=== PATIENT | female | born 1935 | race Caucasian/White ===

== ENCOUNTER 2016-08-30 08:30 | Inpatient (IN) | payer MEDICARE ==
--- NOTE | 2016-08-26 20:03 | HP ---
HISTORY AND PHYSICAL: DATE OF OFFICE VISIT: 08/26/16 DATE OF SURGERY: 08/30/16 SURGEON: Radha Zepeda MD PROCEDURE: Right total hip arthroplasty. CHIEF COMPLAINT: Right hip pain. HISTORY OF PRESENT ILLNESS: Ms. Montenegro is a 81-year-old female with complaints of right hip pain. She has failed conservative management and has advanced osteoarthritis of the right hip and is molly cted to proceed with a right total hip arthroplasty scheduled for 08/30/16. PAST MEDICAL HISTORY: Hypertension, Crohn's disease, GERD, osteoarthritis, and breast cancer. PAST SURGICAL HISTORY: Mastectomy, hysterectomy, removal of a cyst from the thyroid, and colonoscop y. CURRENT MEDICATIONS: 1. Multivitamin. 2. Lisinopril/hydrochlorothiazide. 3. Nexium. 4. Aspirin. 5. Fluticasone. 6. Cetirizine. 7. Mineral oil. 8. Metamucil. 9. Nystatin. 10. Silver sulfadiazine. ALLERGIES: To MORPHINE, TRIPLE ANTIBIOTIC OINTMENT, and NEOSPORIN. FAMILY HISTORY: Heart disease. SOCIAL HISTORY: She is a 81-year-old female. She lives with her . She does not smoke, use drugs or alcohol. REVIEW OF SYSTEMS: A complete 14-point review of systems was reviewed with the patient. All was ne gative or noncontributory. PHYSICAL EXAM: VITAL SIGNS: She stands 5 feet 3 inches tall, weighs 215 pounds. Her blood pressure is 146/78 and her heart rate is 76. GENERAL: She is well developed, well nourished, in no acute distress. HEENT: Normocephalic, atraumatic. NECK: Supple. No palpable lymph nodes. Trachea is midline. CARDIO: Regular rate and rhythm. Strong S1, S2. No murmurs, gallops, or rubs. No peripheral edema . PULMONARY: The lungs are clear to auscultation bilaterally. No wheezes, rhonchi, or rales. ABDOMEN: Soft, nontender, and nondistended. NEUROLOGIC: She is alert and oriented x3. Cranial nerves II through XII are intact. MUSCULOSKELETAL: Right lower extremity, she has limited range of motion with internal and external rotation of the right hip. Walks with an antalgic-type gait. She has 2+ dorsalis pedis pulses, inta ct sensation. Skin is intact. Her lower extremity muscle group strengths are intact to 5/5. ASSESSMENT AND PLAN: Ms. Montenegro is a 81-year-old female with complaints of right hip pain. She h as failed conservative management and is elected to proceed with a right total hip arthroplasty sche duled for 08/30/[address] Zepeda discussed the risks and benefits of the surgery at tod 's visit and all of her questions were answered. Coumadin, Percocet, and Colace were sent to her pharmacy for postoperative pain control and DVT prophylaxis. I instructed her not to take the Couma din prior to the surgery. She will follow up with Dr. Zepeda in 10 to 14 days after the surgery. JIM TORRES [id number]/[facility] #: [id number]
--- NOTE | 2016-09-30 19:55 | HP ---
HISTORY AND PHYSICAL: DATE OF SURGERY: 10/11/16 DATE OF OFFICE VISIT: 09/30/16 SURGEON: Radha Zepeda MD PROCEDURE: Right total hip arthroplasty CHIEF COMPLAINT: Right hip pain. HISTORY OF PRESENT ILLNESS: Ms. Montenegro is a 81-year-old female with complaints of right hip pain. She has known advanced osteoarthritis of the right hip. She has failed conservative management an d has elected to proceed with a right total hip arthroplasty, which is scheduled for 10/11/16. PAST MEDICAL HISTORY: Hypertension, Crohn's disease, GERD, osteoarthritis, breast cancer. PAST SURGICAL HISTORY: Lumpectomy, hysterectomy, cyst removal from the thyroid, and colonoscopy. CURRENT MEDICATIONS: 1. Multivitamin. 2. Lisinopril/hydrochlorothiazide. 3. Nexium. 4. Aspirin. 5. Fluticasone. 6. Cetirizine. 7. Mineral oil. 8. Metamucil. 9. Nystatin. 10. Silver sulfadiazine. ALLERGIES: To MORPHINE causing vomiting, TRIPLE ANTIBIOTIC OINTMENT, and NEOSPORIN. FAMILY HISTORY: Heart disease. SOCIAL HISTORY: She is a 81-year-old female. She lives with her . She does not smoke, use drugs or alcohol. REVIEW OF SYSTEMS: A complete 14-point review of systems was reviewed with the patient. All was ne gative or noncontributory. PHYSICAL EXAMINATION GENERAL: She is a well-developed, well-nourished, in no acute distress. VITAL SIGNS: She stands 5 feet 3 inches tall, weighs 215 pounds. Her blood pressure is 168/90, her heart rate is 90. HEENT: Normocephalic, atraumatic. NECK: Supple. No palpable lymph nodes. PULMONARY: The lungs are clear to auscultation bilaterally. No wheezes, rhonchi, or rales. CARDIO: Regular rate and rhythm. Strong S1, S2. No murmurs, gallops, or rubs. No peripheral edema . ABDOMEN: Soft, nontender, and nondistended. MUSCULOSKELETAL: Right lower extremity: Skin is intact. She has limited range of motion with both internal and external rotation. She walks with an antalgic type gait. She has 2+ dorsalis pedis p ulse. Intact sensation and her lower extremity muscular strengths are intact at 5/5. NEUROLOGIC: She is alert and oriented x3. Cranial nerves II through XII are intact. ASSESSMENT AND PLAN: Ms. Montenegro is a 81-year-old female with complaints of right hip pain second ronnie to advanced osteoarthritis. She has failed conservative management and has elected to proceed w ith a right total hip arthroplasty, which is scheduled for 10/11/16. Colace, Coumadin, and Percocet were all sent to her pharmacy and she was instructed not to take the Coumadin prior to the surgery. She will follow up with Dr. Zepeda 14 days after the surgery. JIM TORRES [id number]/[facility] #: [id number]
--- NOTE | 2017-08-15 19:23 | HP ---
HISTORY AND PHYSICAL: DATE OF SURGERY: 08/22/17 DATE OF OFFICE VISIT: 08/14/17 SURGEON: Radha Zepeda MD * (DICTATED BY JIM TORRES) PROCEDURE: Right total hip arthroplasty. CHIEF COMPLAINT: Right hip pain. HISTORY OF PRESENT ILLNESS: Ms. Montenegro is an 82-year-old female with complaints of right hip pain secondary to end-stage osteoarthritis. She has failed conservative management and has elected to proceed with a right total hip arthroplasty, which is scheduled for 08/22/[address] Zepeda. PAST MEDICAL HISTORY: 1. Hypertension. 2. Crohn's disease. 3. GERD. 4. Osteoarthritis. 5. Breast cancer. PAST SURGICAL HISTORY: 1. Hysterectomy. 2. Thyroid cyst removal. 3. Lumpectomy. 4. Colonoscopy. CURRENT MEDICATIONS: 1. Daily multivitamin. 2. Lisinopril/hydrochlorothiazide 20/25 mg daily. 3. Aspirin 81 mg daily. 4. Cetirizine 10 mg daily. 5. Mineral oil. 6. Metamucil. 7. Nystatin. 8. Silver sulfadiazine. 9. Omeprazole 20 mg daily. 10. Azelastine. ALLERGIES: MORPHINE, TRIPLE ANTIBIOTIC CREAM, and NEOSPORIN. MORPHINE causing nausea and vomiting only. FAMILY HISTORY: Heart disease. SOCIAL HISTORY: An 82-year-old female. She lives with her . She does not smoke or use drugs. REVIEW OF SYSTEMS: A complete 14-point review of systems was reviewed with the patient, and it was positive for GERD. She denies history of DVT, PE, hepatitis C, HIV, or MRSA. PHYSICAL EXAMINATION GENERAL: She is well developed, well nourished, in no acute distress. VITAL SIGNS: She stands 5 feet 3 inches tall, weighs 215 pounds. Her blood pressure is 167/88, her heart rate is 90. HEENT: Normocephalic, atraumatic. NECK: Supple. No palpable lymph nodes. PULMONARY: Lungs are clear to auscultation bilaterally. CARDIO: Regular rate and rhythm. ABDOMEN: Soft, nontender, nondistended. NEUROLOGICAL: She is alert and oriented x3. Cranial nerves II through XII are intact. MUSCULOSKELETAL: Right lower extremity, the skin is intact. There are no open wounds or abrasions. She walks with an antalgic type gait, favoring her right hip. She has decreased internal and external rotation of her right hip and 2+ dorsalis pedis pulses. Intact sensation in her lower extremities. Muscle group strength is intact at 5/5. ASSESSMENT AND PLAN: Ms. Montenegro is an 82-year-old female with complaints of right hip pain secondary to advanced osteoarthrosis. She has failed conservative management and has elected to proceed with a right total hip arthroplasty, which is scheduled for 08/22/[address] Zepeda discussed the risks and benefits of the surgery at today's visit and all of her questions were answered. Coumadin, Percocet, and Colace were sent to her pharmacy for postoperative pain control and DVT prophylaxis. She will see Dr. Zepeda back in 2 weeks after the surgery. JIM TORRES [id number]/[facility] #: [id number] MTDD
[2017-08-21] MEDS ORDERED: Buffered Lidocaine 0.9% SYRIN* 5 ML/SYR SYRINGE INTRADERM ONE (14:32)
[2017-08-22] MEDS ORDERED: Buffered Lidocaine 0.9% SYRIN* 5 ML/SYR SYRINGE ONE (06:01)
[2017-08-22] MEDS ORDERED: ceFAZolin 2 GM PREMIX (*) 2 GM/50 ML BAG IVPB ONE (06:01)
[2017-08-22] MEDS ORDERED: Midazolam* 1 MG/ML 2 ML VIAL (2 MG) ONE ×2 (07:14→07:37)
[2017-08-22] MEDS ORDERED: Famotidine IV* 10 MG/ML 2 ML (20 mg) ONE (07:35)
[2017-08-22] MEDS ORDERED: Dexamethasone IV* 4 MG/ML 1 ML (4 MG) ONE (07:35)
[2017-08-22] MEDS ORDERED: Ondansetron INJ* 2 MG/ML VIAL ONE (07:35)
[2017-08-22] MEDS ORDERED: Lidocaine 2% PF * 5 ML VIAL ONE (07:35)
[2017-08-22] MEDS ORDERED: Cisatracurium* 2 MG/ML MDV 5 ML ONE (07:35)
[2017-08-22] MEDS ORDERED: Succinylcholine* 20 MG/ML 10 ML VIAL ONE (07:35)
[2017-08-22] MEDS ORDERED: Propofol* 10 MG/ML 20 ML BTL IV PUSH ONE (07:35)
[2017-08-22] MEDS ORDERED: Polyethylene Glycol 3350* 17 GM PACKET PO PRN (07:46)
[2017-08-22] MEDS ORDERED: Bisacodyl SUPP* 10 MG SUPP PR PRN (07:46)
[2017-08-22] MEDS ORDERED: diPHENhydraMINE IV* 50 MG/ML 1 ml VIAL (BENADRYL) IV PRN (07:46)
[2017-08-22] MEDS ORDERED: Acetaminophen TAB* 325 MG PO PRN (07:46)
[2017-08-22] MEDS ORDERED: Magnesium Hydroxide LIQ* 30 ML UDC PO PRN (07:46)
[2017-08-22] MEDS ORDERED: Ondansetron INJ* 2 MG/ML VIAL IV PRN ×2 (07:46→09:02)
[2017-08-22] MEDS ORDERED: HYDROmorphone INJ* 2 MG/ML CARPUJECT SYRINGE IV SLOW PU PRN (07:49)
[2017-08-22] MEDS ORDERED: Nystatin CREAM* 15 GM TUBE TOPICAL PRN (07:50)
[2017-08-22] MEDS ORDERED: KETAMINE HCL* 50 MG/ML 10 ML VIAL ONE (07:51)
[2017-08-22] MEDS ORDERED: fentaNYL* 50 MCG/ML 2 ML VIAL (100 MCG VIAL) ONE (07:51)
[2017-08-22] MEDS ORDERED: Dexmedetomidine* 200 MCG/2 ML 2 ML VIAL ONE (07:52)
[2017-08-22] MEDS ORDERED: Phenylephrine IV* 40 MCG/ML 10 ML SYRINGE ONE (08:39)
[2017-08-22] MEDS ORDERED: Metoclopramide IV* 5 MG/ML 2 ML VIAL ONE (08:41)
[2017-08-22] MEDS ORDERED: EPHEDrine (Pressors)* 50 MG/ML VIAL ONE (08:45)
[2017-08-22] MEDS ORDERED: Hetastarch in NS* 500 ML IV ONE (08:59)
[2017-08-22] MEDS ORDERED: Lisinopril/HCTZ 20/25(NF) TAB PO SCH (09:00)
[2017-08-22] MEDS ORDERED: Nalbuphine* 20 MG/ML 1 ML VIAL IV PRN (09:02)
[2017-08-22] MEDS ORDERED: DiMENhydriNATE IV* 50 MG/ML VIAL IV PUSH PRN (09:02)
[2017-08-22] MEDS ORDERED: fentaNYL* 50 MCG/ML 2 ML VIAL (100 MCG VIAL) IV PRN (09:02)
[2017-08-22] MEDS ORDERED: Bupivacaine 0.5% SDV PF* 30 ML VIAL ONE (09:08)
--- NOTE | 2017-08-22 10:17 | RAD ---
Indication: Right hip replacement. Single view of the right hip taken in the operating room demonstrates right acetabular cup and femoral reamer in place. IMPRESSION: Intraoperative control films for right placement.
[2017-08-22] MEDS ORDERED: Meperidine SYRINGE* 50 MG/ML ONE (10:18)
[2017-08-22] MEDS: Meperidine SYRINGE* 50 MG/ML IV PRN ×4 (10:19→11:28)
[2017-08-22] MEDS ORDERED: oxyCODONE/Acetamin 5/325 MG* TAB ONE (10:54)
[2017-08-22] MEDS: oxyCODONE/Acetamin 5/325 MG* TAB PO PRN ×3 (10:55→23:33)
--- NOTE | 2017-08-22 11:13 | RAD ---
Indication: Postop RIGHT total hip replacement. Comparison: Intraoperative exam of the same date. Technique: Portable AP RIGHT hip, AP pelvis and proximal femurs, and crosstable lateral RIGHT hip views. Report: RIGHT total hip prosthesis in place with normal alignment. Negative for periprosthetic fracture. Surrounding soft tissue edema and subcutaneous emphysema. Pelvic surgical clips. IMPRESSION: Unremarkable immediate postop appearance following RIGHT total hip replacement.
[2017-08-22] MEDS: Fluticasone NASAL SPRAY 50MCG* 16 gm SPRAY BTL BOTH NARES SCH (13:49)
[2017-08-22] MEDS: Omeprazole CAP* 20 MG PO SCH ×2 (13:49→20:12)
[2017-08-22] MEDS: Docusate CAP* 100 MG PO SCH ×2 (13:49→20:12)
[2017-08-22] MEDS ORDERED: Warfarin TAB(*) 6 MG PO ONE (17:00)
[2017-08-22] MEDS: ceFAZolin 1 GM VIAL(*) 1 GM in NS 0.9% 50 ML* 50 ML IVPB SCH (17:24)
--- NOTE | 2017-08-22 19:57 | CONS ---
CC: Tasha Gabriel NP; Dr. Zepeda * CONSULTATION REPORT: DATE OF CONSULT: 08/22/17 PRIMARY CARE PROVIDER: Tasha Gabriel NP REQUESTING PHYSICIAN IN CONSULT: Dr. Zepeda. MY ATTENDING PHYSICIAN WHILE IN THE HOSPITAL: Dr. Jase Mckeon (report being dictated by Carlos Marie NP). REASON FOR MEDICAL CONSULT: Evaluation and medical management of comorbid medical conditions. HISTORY OF PRESENT ILLNESS: Ms. Montenegro is an 82-year-old female patient, who has been dealing with significant right hip pain for some time now. She had failed conservative therapy. She sought care with Dr. Zepeda, actually this was the third time, the case has been canceled twice for once due to the patient's illness, second due to concern for bleeding, and now the case was done today. She has been failing conservative therapy. She elected for the total hip replacement. She does carry a history of hypertension, breast cancer, history of colitis and Crohn's, breast cancer, arthritis, and GERD, and we were asked to evaluate in consult. She does have a history after hysterectomy in the 80s of requiring several units of blood according to notes from her oncologist. The patient recalls over the course of several hospitalizations related to that hysterectomy that she needed about 30 units of blood. There was a concern for von Willebrand syndrome, but repeat testing was done and this diagnosis was not confirmed, so she has got no von Willebrand's, but she does have a history of bleeding postoperatively in the past with the hysterectomy in the 80s. The patient was evaluated in the PACU today. She says she is feeling well. She denies any chest pain. Denies having any shortness of breath. She denies having any abdominal discomfort. She says that she does not feel hungry. She said that she does not feel lightheaded or dizzy. She says she is feeling quite well, with the exception she does have some pain in the right hip area. But because of her medical complexity, we were asked to evaluate in consult. PAST MEDICAL HISTORY: Significant: 1. Hypertension. 2. Coronary artery disease. 3. GERD. 4. Arthritis. 5. Breast cancer. PAST SURGICAL HISTORY: She has had: 1. Hysterectomy, again complicated course postoperatively with bleeding. 2. Thyroid cyst removal. 3. Lumpectomy. MEDICATIONS: Her home medications according to the preop list include: 1. Allergy shot 1 injection as prescribed. 2. Aspirin 81 mg daily. 3. Vagisil 1 application topically daily as needed. 4. Elidel cream 1 application topically b.i.d. as needed. 5. CeraVe 1 application topically daily. 6. Flonase 2 sprays both nares daily. 7. Lisinopril/hydrochlorothiazide 1 tablet daily. 8. Multivitamin 1 tablet daily. 9. Mineral oil 1 tablet p.o. at bedtime. 10. Nystatin cream 1 application topically b.i.d. as needed. 11. Omeprazole 20 mg p.o. b.i.d. ALLERGIES TO MEDICATIONS: Include MORPHINE TAPE, NEOSPORIN, ALLOYS, and METAL. FAMILY HISTORY: Mother had a history of asthma. Father had an CT at the age of 56. SOCIAL HISTORY: She does not smoke. Does not drink. Surrogate decision maker is her and her son. REVIEW OF SYSTEMS: There is no documented fever. She denied having any significant weight change. There was no double vision. She denies having any ear discharge. There is no rhinorrhea. No sore throat. No thyroid enlargement. Denied having any chest pain. There is no orthopnea. There is no nocturnal dyspnea. There was no abdominal pain. No nausea, no vomiting. No dysuria, no frequency. No seizure, no loss of consciousness. No pruritus, no skin ulceration. Review of 14 systems completed, all others negative. PHYSICAL EXAM: Reveals vital signs blood pressure 111/67, pulse 93, respirations 18, O2 sat 96%, temperature 97.2. General: At this time, Ms. Montenegro is an 82- year-old female patient, she is sitting in the PACU bed. She does not appear to be in any acute distress. HEENT: Head atraumatic. Eyes : EOMs intact. Sclerae anicteric, not pale. Throat: Oral mucosa appears to be most. No oropharyngeal erythema. Neck: Supple. Heart: Sounds S1, S2. Regular rate and rhythm. No murmurs, rubs, or gallops. Lungs: Clear to auscultation bilaterally. No wheezes, rales, or rhonchi. Abdomen: Soft, flat , nontender. Bowel sounds are hypoactive, but present. Extremities: Distal CSM checks are intact to the lower extremities. Lower extremities are immobilized due to hip abduction pillow, but she has dorsi and plantar flexion in both extremities and good sensation. She is moving the upper extremities with 5/5 strength. Neurologically, she is awake, alert, and oriented x3. No gross focal deficits. Skin is intact with the exception she has an incision to the right hip, which is covered with dressing. It is clean, dry, and intact. DIAGNOSTIC STUDIES/LAB DATA: Preop WBC 7.0, RBC 4.86, hemoglobin 13.1, hematocrit 40, platelet count 253. The INR was 1.10. The sodium was 133, potassium 4.3, chloride 96, bicarb 29, BUN 22, creatinine 1.02, glucose is 89. Urine preop showed 1+ leukocyte esterase, present squamous epithelial cells. The culture was negative. She did have a preop chest x-ray which revealed no active cardiopulmonary disease. She had an EKG as well preop which showed normal sinus rhythm at rate of 65. No ST elevations or T-wave inversions were noted. Old medical records were reviewed. ASSESSMENT AND PLAN: Ms. Montenegro is an 82-year-old female patient coming in to our orthopedic services today for an elective right total hip. We were asked to evaluate in consult due to her medical complexity. Recommendations at this point are: 1. Status post right total hip replacement. I will defer the management to Dr. Zepeda and her team. We will be watching closely her H and H, because of her history of bleeding and transfuse as needed and we will continue to follow this closely. 2. Hypotension. In the setting of her having recent anesthetic and her blood loss from the surgery, I am going to hold her blood pressure meds. Blood pressure here was again in the one teens. We will restart when she is able to tolerate. 3. History of colitis and Crohn's. Will follow with primary. Appears to be stable at this point. 3. Gastroesophageal reflux disease. Continue PPI therapy. 4. Arthritis. Continue following with Dr. Zepeda and to follow up with Tasha Gabriel NP. 5. Breast cancer. Continue following with her oncologist. Stable. 6. DVT prophylaxis. Defer to the primary team. 7. Code status. Full code. 8. Fluids, electrolytes, and nutrition. I would recommend a regular diet. TIME SPENT: On the consult 60 minutes, greater than half the time spent face-to - face with the patient obtaining my history and physical, the other half time spent going over plan of care with the patient and implementing plan of care. I did discuss the plan of care with my attending Dr. Mckeon; he is in agreement. CARLOS MARIE NP [id number]/[facility] #: [id number] EDWINA
[2017-08-22] MEDS: oxyCODONE TAB* 5 MG TAB PO PRN (21:28)
[2017-08-23] MEDS: ceFAZolin 1 GM VIAL(*) 1 GM in NS 0.9% 50 ML* 50 ML IVPB SCH ×2 (00:14→07:38)
[2017-08-23] MEDS: oxyCODONE/Acetamin 5/325 MG* TAB PO PRN ×3 (05:47→19:24)
[2017-08-23 06:20] LABS: Hematocrit 21 % (35-47); Hemoglobin 7.2 g/dl (12.0-16.0); Mean Platelet Volume 8 um3 (7.4-10.4)
--- NOTE | 2017-08-23 06:24 | OP ---
OPERATIVE REPORT: DATE OF OPERATION: 08/22/17 DATE OF : 39 SURGEON: Radha Zepeda MD DICE SPOTTER: JIM Bob Ms. Jimenes did help throughout the procedure with preparation of leg, wound retraction, manipulation of the hip, and wound closure. PRE-OP DIAGNOSIS: Severe end-stage degenerative osteoarthritis of the right hip joint. POST-OP DIAGNOSIS: Severe end-stage degenerative osteoarthritis of the right hip joint. OPERATIVE PROCEDURE: Right total hip arthroplasty with acetabular subchondral cyst bone autografting. INDICATIONS: Ms. Montenegro is an 82-year-old female with years of increasingly severe right hip pain. She failed conservative treatment with anti- inflammatories, activity modification, pain pills, ambulatory assistive devices , and physical therapy. Radiographs showed [id number] arthritis. She elected to undergo right hip arthroplasty due to continued pain and decreased quality of life. Informed consent was obtained from the patient. She understood the risks of surgery included, but were not limited to, bleeding, infection, damage to nearby structures, continued pain, need for further surgery , intraoperative fracture, nerve palsy, hardware failure or loosening, dislocation, leg length discrepancy, stroke, heart attack, blood clot, and . She wished to proceed. HARDWARE USED: This is uncemented [place] total hip hardware. For the cup, a Tritanium cluster hole shell 52D, a single 20-mm cancellous bone screw. For the insert, a Trident X3 0-degree polyethylene insert 36D. For the stem, an Accolade TMZF size 3 with a 132-degree neck. For the head, a Biolox delta ceramic V40 femoral head 36, -2.5. ESTIMATED BLOOD LOSS: 600 cc. COMPLICATIONS: None. SPECIMENS: Femoral head and acetabular reaming sent to Pathology. INTRAOPERATIVE FINDINGS: Intraoperatively, the patient was noted to have severe end-stage arthritis with complete loss of cartilage in the femoral head and acetabulum. Acetabulum had thin wall anterior, superiorly, and posteriorly. DESCRIPTION OF PROCEDURE: Ms. Montenegro was identified in the preanesthesia unit. Her right lower extremity was marked as the correct operative side. Informed consent was signed and placed in the chart. The patient was taken to the operating room and placed under spinal anesthesia. A Birch catheter was placed. She was placed in the left lateral decubitus position on the pegboard and all bony prominences were well padded. Right lower extremity was prepped and draped in the usual sterile fashion. Preop time-out was made to correctly identify the patient's side and site. Appropriate perioperative antibiotics were given within 1 hour of incision. A 12-cm posterior hip incision was made with a 10 blade and carried down to the lateral fascial layer. Lateral fascial layer was then incised in line with the skin incision and then Charnley retractor was placed. There was at least 8 cm of subcutaneous fat. The piriformis and conjoint tendons were identified and elevated off the posterolateral femur using electrocautery. These were tagged with two #5 Ethibond's. Next, electrocautery was used to make a standard posterolateral capsular flap and this was also tagged with #5 Ethibond's. The hip was carefully dislocated. Lesser troch to center of the femoral head measured 52 mm. Oscillating saw was used to make the appropriate femoral neck cut. Femoral head had bone graft collected and was set aside. The femur was carefully retracted anteriorly. After appropriate placement of retractor, the acetabulum was easily visualized. A long-handled knife was used to sharply remove any remaining labrum from the acetabular rim. It was noted that there was complete loss of cartilage. The acetabulum bone was extremely thin in anterior, superior, and posterior directions. The acetabulum was sequentially reamed up to a size 51. Bleeding subchondral bone bed was obtained. A 51 trial had good fit and stability. In the weightbearing dome, anteriorly and superiorly, there was a subchondral cyst which was cleared of cystic debris using a curette. Femoral head autograft was used to fill the cystic area. Final implant chosen was a 52D Tritanium cluster hole shell. This was impacted into the acetabulum without difficulty. A good stable fit was obtained as well as appropriate anteversion and abduction angle. A single 20-mm cancellous bone screw was placed in the superoposterior quadrant for extra stability. Liner chosen was a Trident X3 0-degree 36D polyethylene liner. This was impacted into the acetabulum without difficulty. Stability of the liner was checked and rechecked and noted to be stable. Attention was then turned to preparation of the femoral canal. A canal finder was used to enter the proximal femur. The canal was sequentially broached up to a size 3. Size 3 broach had good fit and appropriate anteversion. A 132 neck trial was chosen as well as 36, +0 femoral head trial. Lesser troch to center of the femoral head measured 54 mm. The hip was reduced and taken through a range of motion. The hip was stable in all positions. There was appropriate soft tissue tension and leg lengths. The hip was carefully dislocated. All trials were carefully removed. Final implant chosen was an Accolade TMZF, size 3 with a 132-degree neck. This final implant did sit up about 2 mm. Therefore, a Biolox delta ceramic V40 femoral head 36, -2.5 was chosen as the final femoral head. Lesser troch to center of the femoral head measured 53 mm. The head was impacted on to the femoral neck without difficulty. The hip was reduced and taken through range of motion. The hip was stable in all positions. There was good soft tissue tension and appropriate leg lengths. The hip was copiously irrigated with sterile saline. Previously tagged capsule and tendons were reapproximated to the posterolateral femur through 2 trochanteric drill holes. The lateral fascial layer was closed using interrupted #1 Vicryl's. The rest of the incision was closed in a layered fashion using 0 and 2-0 Vicryl's. Skin was closed using running 3-0 Monocryl and Dermabond. Sterile Adaptic, 4x4's, and paper tape were used to cover the incision. The patient's anesthesia was reversed without difficulty. She was taken to the PACU in stable condition. Intended weightbearing will be weightbearing as tolerated. Intended DVT prophylaxis will be Coumadin with Lovenox bridge. [id number]/[facility] #: [id number] EDWINA
[2017-08-23 06:30] LABS: BUN/Creatinine Ratio 21.9 (8-20); Calcium 7.9 mg/dL (8.6-10.3); EGFR African American 71.9 (>60); EGFR Non-African American 55.9 (>60); Potassium 4.2 mmol/L (3.5-5.0)
[2017-08-23] MEDS: oxyCODONE TAB* 5 MG TAB PO PRN (07:38)
[2017-08-23] MEDS: Omeprazole CAP* 20 MG PO SCH ×2 (07:46→22:10)
[2017-08-23] MEDS: Fluticasone NASAL SPRAY 50MCG* 16 gm SPRAY BTL BOTH NARES SCH (07:46)
[2017-08-23] MEDS: Docusate CAP* 100 MG PO SCH ×2 (07:46→22:10)
[2017-08-23] MEDS ORDERED: Enoxaparin(*) 30 MG/0.3 ML SYR SUBCUT SCH (08:00)
--- NOTE | 2017-08-23 08:32 | PN ---
Progress Note - Progress Note Date of Service: 08/23/17 SOAP: Subjective: [] Patient seen OOB in chair. She has 1-2/10 pain localized to operative site. She confirms mild nausea and dizziness with standing which resolved with sitting down. She is currently receiving PRBC. No chest pain or shortness of breath. Objective: [] Vital Signs Temp 98.5 F 08/23/17 07:28 Pulse 76 08/23/17 07:28 Resp 18 08/23/17 07:54 BP 104/49 08/23/17 07:28 Pulse Ox 95 08/23/17 07:28 Intake & Output 08/22/17 08/23/17 08/23/17 18:59 06:59 18:59 Intake Total 3705 2420 Output Total 850 650 Balance 2855 1770 Intake: IV Fluids 2850 980 LR 2300 980 NS 50ML, Cefazolin 2G 50 hextend 500 Oral 855 1440 Output: Birch 250 650 Estimated Blood Loss 600 Laboratory Last Values Hgb 7.2 g/dl (12.0-16.0) L 08/23/17 05:36 Hct 21 % (35-47) L 08/23/17 05:36 Plt Count 182 10^3/ul (150-450) 08/23/17 05:36 MPV 8 um3 (7.4-10.4) 08/23/17 05:36 INR (Anticoag Therapy) 1.46 (0.89-1.11) H 08/23/17 05:36 Sodium 132 mmol/L (133-145) L 08/23/17 05:36 Potassium 4.2 mmol/L (3.5-5.0) 08/23/17 05:36 Chloride 100 mmol/L (101-111) L 08/23/17 05:36 Carbon Dioxide 28 mmol/L (22-32) 08/23/17 05:36 Anion Gap 4 mmol/L (2-11) 08/23/17 05:36 BUN 21 mg/dL (6-24) 08/23/17 05:36 Creatinine 0.96 mg/dL (0.51-0.95) H 08/23/17 05:36 Est GFR ( Amer) 71.9 (>60) 08/23/17 05:36 Est GFR (Non-Af Amer) 55.9 (>60) 08/23/17 05:36 BUN/Creatinine Ratio 21.9 (8-20) H 08/23/17 05:36 Glucose 116 mg/dL (70-100) H 08/23/17 05:36 Calcium 7.9 mg/dL (8.6-10.3) L 08/23/17 05:36 Blood Type O Positive 08/23/17 05:29 Antibody Screen Negative 08/23/17 05:29 Crossmatch See Detail 08/23/17 05:29 General: Well appearing, no acute distress. Calm and cooperative RLE: BL LE: Calves supple and nontender without erythema, edema, palpable cords. negative lorrie's sign. Sensation intact to light touch distally. DF/PF intact. DP/PT pulses 2+ Assessment: []POD 1 S/P Right total hip arthroplasty 08/22, Dr. Zepeda Plan: []WBAT PT/OT Hold lovenox due to low H&H. Coumadin 6 mg today Patient seen by this morning, condition and care plan were discussed.
[2017-08-23] MEDS: Ondansetron TAB* 4 MG PO PRN ×2 (09:45→14:35)
--- NOTE | 2017-08-23 14:11 | PN ---
Subjective Date of Service: 08/23/17 Interval History: Patient seen and examined at bedside. Patient feels fatigued and reports pain is controlled. Hb low this morning and is currently receiving her second unit of blood. Making progress with PT. Asking for mineral oil and bedtime. Family History: Unchanged from Admission Social History: Unchanged from Admission Past Medical History: Unchanged from Admission Objective Active Medications: Acetaminophen (Tylenol Tab*) 650 mg PO Q4H PRN Bisacodyl (Dulcolax Supp*) 10 mg IN DAILY PRN Diphenhydramine HCl (Benadryl Iv*) 12.5 mg IV Q6H PRN Docusate Sodium (Colace Cap*) 100 mg PO BID [facility] Fluticasone Propionate (Flonase Nasal [place] 50mcg*) 2 spray BOTH NARES DAILY [facility] Hydromorphone HCl (Dilaudid Inj*) 2 mg IV SLOW PU Q4H PRN Lactated Ringer's (Lactated Ringers 1000 Ml Bag*) 1,000 mls @ 100 mls/hr IV PER RATE CHRISTIANO Lactulose (Lactulose*) 30 ml PO Q6H PRN Magnesium Hydroxide (Milk Of Magnesia Liq*) 30 ml PO Q6H PRN Mineral Oil (Mineral Oil*) 30 ml PO BEDTIME [facility]ST[facility] Nystatin (Nystatin Cream*) 1 applic TOPICAL BID PRN Omeprazole (Prilosec Cap*) 20 mg PO BID [facility] Ondansetron HCl (Zofran Inj*) 4 mg IV Q6H PRN Ondansetron HCl (Zofran Tab*) 4 mg PO Q6H PRN Oxycodone HCl (Roxycodone Tab*) 10 mg PO Q4H PRN Oxycodone/Acetaminophen (Percocet 5/325 Tab*) 1 tab PO Q4H PRN Oxycodone/Acetaminophen (Percocet 5/325 Tab*) 2 tab PO Q4H PRN Pharmacy Profile Note (Coumadin Daily Reminder*) 1 note FOLLOW UP 1700 [facility] Polyethylene Glycol/Electrolytes (Miralax*) 17 gm PO DAILY PRN Warfarin Sodium (Coumadin Tab(*)) 6 mg PO ONCE@1700 [facility] Vital Signs Temp Pulse Resp BP Pulse Ox 98.0 F 89 16 131/54 97 08/23/17 13:07 08/23/17 13:07 08/23/17 13:07 08/23/17 13:07 08/23/17 13:07 Oxygen Devices in Use Now: None Appearance: sitting up in bed, NAD Eyes: No Scleral Icterus, PERRLA Ears/Nose/Mouth/Throat: NL Teeth, Lips, Gums Neck: NL Appearance and Movements; NL JVP Respiratory: Symmetrical Chest Expansion and Respiratory Effort, Clear to Auscultation Cardiovascular: NL Sounds; No Murmurs; No JVD, RRR, No Edema Abdominal: NL Sounds; No Tenderness; No Distention Extremities: No Edema Skin: No Rash or Ulcers, - - R hip incision C/D/I Neurological: Alert and Oriented x 3, NL Muscle Strength and Tone Lines/Tubes/Other Access: Clean, Dry and Intact Peripheral IV Nutrition: Taking PO's Result Diagrams: 08/23/17 05:36 08/23/17 05:36 Assess/Plan/Problems-Billing Patinent is an 82 y/o F w/ hx of crohns, HTN, GERD, CAD w/ hx of postoperative bleeding who underwent a total hip replacement with Dr. Zepeda on 08/23. Hospitalist were asked to assist with co-management. - Patient Problems (1) Status post right hip replacement Comment: Managment per Ortho. Pain control. Recheck H/H in AM. PT/OT (2) Acute blood loss as cause of postoperative anemia Comment: Hb 7.2 today. Receiving 2 units of PRBC. Recheck in AM. (3) GERD (gastroesophageal reflux disease) Comment: Continue Prilosec 20mg BID (4) HTN (hypertension) Comment: Hold Zestoretic for now. Restart when SBP> 140. (5) DVT prophylaxis Comment: Warfarin per Ortho (6) Full code status Status and Disposition: Inpatient for total hip replacement. Dispo per Ortho.
[2017-08-23] MEDS ORDERED: Scopolamine 1.5 mg* PATCH ONE (14:56)
[2017-08-23] MEDS ORDERED: Scopolamine 1.5 mg* PATCH TRANSDERM SCH (15:00)
[2017-08-23] MEDS ORDERED: Warfarin TAB(*) 6 MG PO SCH (17:00)
[2017-08-23] MEDS ORDERED: Mineral Oil, LAXITIVE* 30 ML UDC PO SCH (21:00)
[2017-08-24 05:44] LABS: Hematocrit 26 % (35-47)
[2017-08-24] MEDS: oxyCODONE/Acetamin 5/325 MG* TAB PO PRN ×2 (07:31→11:29)
--- NOTE | 2017-08-24 07:46 | PN ---
Progress Note - Progress Note Date of Service: 08/24/17 SOAP: Subjective: Pt. is alert, reports mod pain R hip. Objective: RLE - dressing changed, inc c/d/i. distally nvi. thigh soft. Vital Signs: Temp Pulse Resp BP Pulse Ox 99.4 F 95 20 123/54 95 08/24/17 03:30 08/24/17 03:30 08/24/17 07:31 08/24/17 03:30 08/24/17 03:30 Laboratory Results - last 24 hr 08/23/17 08/24/17 08/24/17 05:29 05:06 05:33 Hgb 9.0 L Hct 26 L INR (Anticoag Therapy) 3.21 H Blood Type O Positive Antibody Screen Negative Crossmatch See Detail Assessment: 82 yo F pod 2 s/p RTHA Plan: d/c lovenox hold coumadin tonight hct improved pt. stable for tx to pmru today
[2017-08-24] MEDS: Omeprazole CAP* 20 MG PO SCH (09:18)
[2017-08-24] MEDS: Fluticasone NASAL SPRAY 50MCG* 16 gm SPRAY BTL BOTH NARES SCH (09:19)
[2017-08-24] MEDS: Docusate CAP* 100 MG PO SCH (09:19)
[2017-08-24 09:32] VITALS: BP 126/58
--- NOTE | 2017-08-25 03:56 | DS ---
DISCHARGE SUMMARY: DATE OF ADMISSION: 08/22/17 DATE OF DISCHARGE: 08/24/17 DATE OF SERVICE: 08/24/17 DATE OF OPERATION: 08/22/17 PROVIDER: Dr. Radha Zepeda * (DICTATED BY JIM BORDEN) BRICK CARRIER: JIM Bob PREOPERATIVE DIAGNOSES: Severe end-stage degenerative osteoarthritis of the right hip joint. OPERATIVE PROCEDURE: Right total hip arthroplasty with acetabular subchondral cyst bone grafting. HISTORY OF PRESENT ILLNESS: Ms. Montenegro is an 82-year-old female with years of increasingly severe right hip pain. She has failed conservative therapy with anti- inflammatories, activity modification, pain pills, ambulatory assistive devices, and physical therapy. Radiographs show [id number] arthritis and she will undergo a right hip arthroplasty on 08/22/17. HOSPITAL COURSE: Chantal Montenegro was admitted to [facility] on 08/22/17 and underwent a right total hip arthroplasty without complication. The patient recovered briefly in the PACU and was then transferred to the short- stay surgical unit in stable condition. On postop day 1, the patient's H and H was 7.2/21, her INR was 1.46. One unit of packed red blood cells was transfused. On exam, she was well-appearing and in no acute distress. Calves were supple and nontender without erythema, edema, or palpable cords. Negative Homans sign. Sensation intact to light touch distally. Dorsiflexion and plantarflexion intact. Dorsalis pedis and posterior tibial pulses were 2+. Right lower extremity dressing was clean, dry, and intact. On postop day 1, she also received irradiated leukocyte reduced RBCs, so in total, she received 2 units of blood on postop day 1. On postop day 2, her H and H was 9.0/26. Her INR was 3.21 after having received a dose of 6 mg of warfarin the night previous. On exam, on postop day #2, her operative dressing was changed. Her incision was clean, dry, and intact. She was neurovascularly intact. Her thigh was soft. Lovenox was discontinued and Coumadin was held. Vital signs on the day of discharge, temperature 99.2, pulse 95, respiratory rate 16, oxygen saturation 90, and blood pressure 126/58. Throughout the hospital course , the patient vital signs remained stable and she remained afebrile. DISCHARGE CONDITION: Stable. DISCHARGE MEDICATIONS: 1. Nystatin cream 1 application topically b.i.d. p.r.n. 2. Alvedil cream 1 application topically b.i.d. p.r.n. 3. Aspirin 81 mg p.o. at bedtime. 4. Lisinopril hydrochlorothiazide 20/25 one tab p.o. q.a.m. 5. Multivitamin 1 tab p.o. q.a.m. 6. Mineral oil 1 oil p.o. at bedtime. 7. Emollient 1 topical application daily. 8. Allergy shots 1 injection per instruction from stove cleaner. 9. Fluticasone nasal spray 50 mcg 2 sprays both nares daily. 10. Omeprazole 20 mg p.o. b.i.d. 11. Benzocaine resorcinol, vaginal 20 per 3% cream 1 application topically daily p.r.n. 12. Acetaminophen 325 mg tablets, she can take 650 mg q.4 hours p.r.n., max dose 4000 mg per day of all sources. 13. Docusate 100 mg p.o. b.i.d. 14. Percocet 5/325 one to two tablets q.4 to 6 hours p.r.n., max daily dose of 10. 15. Scopolamine 1.5 mg patch. Hold warfarin on tonight and RU will take over dosing per INR thereafter. DISCHARGE INSTRUCTIONS: The patient is weightbearing as tolerated. Wound care ; it is okay to shower but no bathing, submerging, or swimming. Showering can begin on the 3rd postoperative day. DIET: Regular diet as tolerated. Continue stool softeners. Call office if no bowel motion in 48 hours. Continue hip precautions. Do not cross legs or bend greater than 90 degrees. Continue physical therapy and occupational therapy exercises as shown. The patient is discharged to [facility] where INRs will be drawn on Mondays and . Wound checks will be conducted. The patient will be participating in physical therapy and occupational therapy. Pain control at this point is prescribed as Percocet 5/325 one to two tabs by mouth every 4 to 6 hours as needed for pain, not to exceed 10 tabs daily. The patient will follow up with Dr. Zepeda in the office in 10 to 14 days. JT [place], [place] [id number]/[facility] #: [id number] [facility]
== END 2017-08-24 11:41 | DRG 470 ==
LOC: AA 08-22 05:52 → SSU 08-22 12:07
PROVIDERS: ADMIT Orthopaedic Surgery Adult Reconstructive Orthopaedic Surgery; ATTEND Orthopaedic Surgery Adult Reconstructive Orthopaedic Surgery
PROC: 0SR904A Replacement of Right Hip Joint with Ceramic on Polyethylene Synthetic Substitute, Uncemented, Open Approach (ICD-10-PCS; 2017-08-22)
PROC: 0QU407Z Supplement Right Acetabulum with Autologous Tissue Substitute, Open Approach (ICD-10-PCS; 2017-08-22)
PROC: 30233N1 Transfusion of Nonautologous Red Blood Cells into Peripheral Vein, Percutaneous Approach (ICD-10-PCS; principal; 2017-08-23)
DX: M16.11 Unilateral primary osteoarthritis, right hip (principal); D68.0 Von Willebrand disease; K21.9 Gastro-esophageal reflux disease without esophagitis; K50.90 Crohn's disease, unspecified, without complications; I25.10 Atherosclerotic heart disease of native coronary artery without angina pectoris; I10 Essential (primary) hypertension; Z79.82 Long term (current) use of aspirin; Z88.5 Allergy status to narcotic agent; Z90.710 Acquired absence of both cervix and uterus; Z82.49 Family history of ischemic heart disease and other diseases of the circulatory system; Z82.5 Family history of asthma and other chronic lower respiratory diseases; Z87.891 Personal history of nicotine dependence; Z85.3 Personal history of malignant neoplasm of breast; Z88.8 Allergy status to other drugs, medicaments and biological substances; R11.0 Nausea; D62 Acute posthemorrhagic anemia; R42 Dizziness and giddiness
CPT/HCPCS: 36415; 80048; 85014; 85018; 85049; 85610; 86850; 86900; 86901; 86922; 88304; 88311; A9270-GY; J0330; J0690; J1100; J2175; J2250; J2405; J2704; J2765; J3010; P9040

== ENCOUNTER 2017-08-24 06:59 | Inpatient (IN) | payer MEDICARE ==
[2017-08-24] MEDS ORDERED: Senna TAB PO PRN (13:01)
[2017-08-24] MEDS ORDERED: Acetaminophen TAB* 325 MG PO PRN (13:01)
[2017-08-24] MEDS ORDERED: Al Hydrox/Mg Hydrox/Simet LIQ* 30 ML UDC PO PRN (13:01)
[2017-08-24] MEDS ORDERED: Bisacodyl SUPP* 10 MG SUPP PR PRN (13:01)
[2017-08-24] MEDS ORDERED: Ondansetron ODT TAB* 4 MG PO PRN (13:11)
[2017-08-24] MEDS ORDERED: Scopolamine 1.5 mg* PATCH TRANSDERM SCH (14:00)
--- NOTE | 2017-08-24 18:01 | HP ---
CC: Tasha Gabriel NP; Dr. Zepeda * REHABILITATION ADMISSION: DATE OF ADMISSION: 08/24/17 PRIMARY CARE PROVIDER: Tasha Gabriel NP ORTHOPEDIC SURGEON: Dr. Zepeda. REASON FOR ADMISSION: Right total hip replacement. HISTORY OF PRESENT ILLNESS: This is an 82-year-old woman, who has had longstanding right hip osteoarthritis that has been refractory to conservative treatment. She decided to undergo elective right total hip replacement and was admitted on 08/22/[address] Zepeda's service for that procedure. Postoperatively, she was placed on Coumadin with Lovenox bridging for DVT prophylaxis. After one day of Coumadin, her INR went to 1.46 and she was also experiencing acute postoperative anemia. Lovenox was held. Today, her INR is up to 3.21 and Coumadin is being held tonight. On postop day 1, she was having significant nausea, dizziness with standing and vomiting. Once again, her hemoglobin was 7.2 and hematocrit 21. She received 2 units of packed red blood cells and started on a scopolamine patch with p.r.n. Zofran. She seems to be doing better at this time. With the blood transfusion, her hemoglobin has increased to 9 today and hematocrit to 26. She denies any nausea or vomiting today. She has longstanding hypertension that has been treated with lisinopril and hydrochlorothiazide, but her medications have been on hold since the surgery. She has been able to urinate since the catheter has been removed. She has not had a bowel movement yet. Prior to admission she was independent with mobility without an assistive device and self care. With OT she has required maximum to total assistance for dressing and moderate assistance for bathing and toileting. With PT she has required contact guard assistance for transfers and ambulation. PAST MEDICAL HISTORY: 1. Hypertension. 2. Crohn's disease. 3. GERD. 4. Osteoarthritis, status post right total hip replacement, see history of present illness. 5. History of breast cancer, status post lumpectomy. 6. Status post hysterectomy, complicated by postoperative bleeding. 7. Status post thyroid cyst resection. MEDICATIONS: Currently: 1. Mineral oil 3 mL q.h.s. 2. Nystatin cream topically b.i.d. p.r.n. 3. Omeprazole 20 mg b.i.d. 4. Flonase 2 sprays both nares daily. 5. Scopolamine patch q.72 hours. 6. Zofran 4 mg q.6 hours p.r.n. 7. Tylenol p.r.n. 8. Colace 100 mg b.i.d. 9. Percocet 1 to 2 tablets q.4 hours p.r.n. pain. 10. Coumadin is currently on hold. ALLERGIES: MORPHINE, TRIPLE ANTIBIOTIC OINTMENT, and NEOSPORIN. FAMILY HISTORY: Significant for coronary artery disease. SOCIAL HISTORY: She lives in [facility] with her . No smoking or alcohol. The home has one step to enter and is one level. She is a retired undertaker assistant. She enjoys reading, TV, golf, camping, and fishing. REVIEW OF SYSTEMS: See history of present illness and past medical history. The remainder of the 13-system review was completed. No significant findings. PHYSICAL EXAMINATION GENERAL: Well-developed, well-nourished. VITAL SIGNS: Temperature 99.2, heart rate 95, respirations 16, oxygenation 90% on room air, blood pressure is 126/58. HEENT: Normocephalic, atraumatic. Oropharynx is clear. Moist mucous membranes. LUNGS: Clear to auscultation bilaterally. HEART: Regular rate and rhythm. ABDOMEN: Active bowel sounds, soft, nontender, nondistended. EXTREMITIES: No clubbing, cyanosis, or edema. MUSCULOSKELETAL EXAM: She has functional range of motion of all of her major joints with limited testing of the right hip. NEUROLOGICAL EXAM: 5/5 strength in bilateral upper and lower extremities with some limited testing of the right hip. Sensation is intact. MENTAL STATUS: No acute distress. Alert and oriented x3. LABORATORY DATA: Today, INR is 3.21. Hemoglobin 9. Hematocrit 26. IMPRESSION: An 82-year-old woman, status post right total hip replacement, complicated by acute postoperative anemia, and nausea and vomiting. She will be admitted to [facility], so she can return to independent living with her . PLAN: 1. Right total hip replacement. Continue with total hip precautions. Weightbearing as tolerated. Follow up with Dr. Zepeda. Dressing changes as per routine. 2. DVT prophylaxis. The plan is for Coumadin. It will be on hold tonight. Check INR daily and we will reintroduce Coumadin when it seems appropriate. 3. Acute postoperative anemia. Follow up CBC tomorrow. 4. Nausea and vomiting. Continue scopolamine patch and Zofran p.r.n. 5. Hypertension. Her medications are still on hold. If her systolic is up towards 140, I will restart some of her medications. 6. Impaired mobility. She will be seen by Physical Therapy for bed mobility, transfer and gait training as well as stairs, using rolling walker. 7. Impaired self-care. She will be seen by Occupational Therapy for ADL training and equipment evaluation. 8. Advanced directives. Her is her healthcare proxy if she cannot make decisions for herself. She desires a full code. 9. Estimated length of stay is 5 to 7 days, then return to home with family support. [id number]/[facility]PS #: [id number] MTDD
[2017-08-24] MEDS: Omeprazole CAP* 20 MG PO SCH (20:06)
[2017-08-24] MEDS: Docusate CAP* 100 MG PO SCH (20:06)
[2017-08-24] MEDS: oxyCODONE/Acetamin 5/325 MG* TAB PO PRN (20:14)
[2017-08-24] MEDS: Nystatin CREAM* 15 GM TUBE TOPICAL SCH (20:24)
[2017-08-24] MEDS ORDERED: Fluticasone NASAL SPRAY 50MCG* 16 gm SPRAY BTL BOTH NARES SCH (21:00)
[2017-08-25] MEDS: oxyCODONE/Acetamin 5/325 MG* TAB PO PRN ×3 (01:53→19:42)
[2017-08-25] MEDS: Gaviscon CHEW TAB* 1 TAB PO PRN (05:32)
[2017-08-25] MEDS: Nystatin CREAM* 15 GM TUBE TOPICAL SCH ×2 (08:12→19:45)
[2017-08-25] MEDS: Docusate CAP* 100 MG PO SCH ×2 (08:13→19:43)
[2017-08-25] MEDS: Omeprazole CAP* 20 MG PO SCH ×2 (08:13→19:42)
[2017-08-25] MEDS: Fluticasone NASAL SPRAY 50MCG* 16 gm SPRAY BTL BOTH NARES SCH (08:13)
[2017-08-25 08:15] LABS: Hematocrit 27 % (35-47); Hemoglobin 8.9 g/dl (12.0-16.0); Mean Corpuscular HGB Conc 33 g/dl (31-36); Mean Corpuscular Hemoglobin 28 pg (27-31); Mean Corpuscular Volume 84 fL (80-97); Mean Platelet Volume 8 um3 (7.4-10.4); Red Blood Count 3.18 10^6/ul (4.0-5.4); Red Cell Distribution Width 14 % (10.5-15); White Blood Count 11.6 10^3/ul (3.5-10.8)
[2017-08-25 08:26] LABS: Albumin 2.8 g/dL (3.2-5.2); BUN/Creatinine Ratio 27.5 (8-20); Calcium 8.2 mg/dL (8.6-10.3); EGFR African American 88.8 (>60); Globulin 2.5 g/dL (2-4); Potassium 4.3 mmol/L (3.5-5.0); Total Bilirubin 0.4 mg/dL (0.2-1.0); Total Protein 5.3 g/dL (6.4-8.9)
--- NOTE | 2017-08-25 10:20 | PN ---
Progress Note - Progress Note Date of Service: 08/25/17 Note: She was a little nauseous early this morning, and got zofran. She feels ok now and ate breakfast. No BM yet. No chest pain, shortness of breath or abdominal pain. Nursing and therapy notes reviewed. Acetaminophen (Tylenol Tab*) 650 mg PO Q6H PRN PRN Reason: FEVER > 101 Al Hydrox/Mg Hydrox/Simethicone (Maalox Plus*) 30 ml PO Q6H PRN PRN Reason: INDIGESTION Al Hydroxide/Mg Trisilicate (Gaviscon Chew Tab*) 2 tab.chew PO DAILY PRN PRN Reason: INDIGESTION Last Admin: 08/25/17 05:32 Dose: 2 tab.chew Bisacodyl (Dulcolax Supp*) 10 mg IN DAILY PRN PRN Reason: CONSTIPATION Docusate Sodium (Colace Cap*) 100 mg PO BID [facility] Last Admin: 08/25/17 08:13 Dose: 100 mg Fluticasone Propionate (Flonase Nasal [place] 50mcg*) 2 spray BOTH NARES DAILY [facility] Last Admin: 08/25/17 08:13 Dose: 2 spray Magnesium Hydroxide (Milk Of Magnesia Liq*) 30 ml PO Q6H PRN PRN Reason: CONSTIPATION Mineral Oil (Mineral Oil*) 30 ml PO BEDTIME PRN PRN Reason: CONSTIPATION Nystatin (Nystatin Cream*) 1 applic TOPICAL BID [facility] Last Admin: 08/25/17 08:12 Dose: 1 applic Omeprazole (Prilosec Cap*) 20 mg PO BID [facility] Last Admin: 08/25/17 08:13 Dose: 20 mg Ondansetron HCl (Zofran Odt Tab*) 4 mg PO Q6H PRN PRN Reason: NAUSEA Last Admin: 08/25/17 01:56 Dose: 4 mg Oxycodone/Acetaminophen (Percocet 5/325 Tab*) 1 tab PO Q4H PRN PRN Reason: PAIN Last Admin: 08/25/17 01:53 Dose: 1 tab Oxycodone/Acetaminophen (Percocet 5/325 Tab*) 2 tab PO Q4H PRN PRN Reason: PAIN Last Admin: 08/25/17 08:13 Dose: 2 tab Scopolamine (Transderm-Scop 1.5 Mg Patch*) 1 patch TRANSDERM Q72H [facility] Last Admin: 08/24/17 14:18 Dose: 1 patch Senna (Senokot Tab*) 2 tab PO BEDTIME PRN PRN Reason: CONSTIPATION Warfarin Sodium (Coumadin Tab(*)) 2 mg PO DAILY@1700 [facility] PRN Reason: Protocol Vital Signs 08/24/17 08/24/17 08/24/17 13:21 13:34 13:43 Temperature 98.2 F 98.2 F Pulse Rate 92 92 Respiratory 16 16 Rate Blood Pressure 112/47 112/47 (mmHg) O2 Sat by Pulse 100 100 100 Oximetry 08/24/17 08/24/17 08/24/17 15:46 16:17 20:14 Temperature 98.6 F Pulse Rate 85 Respiratory 16 18 Rate Blood Pressure 136/49 (mmHg) O2 Sat by Pulse 100 98 Oximetry 08/24/17 08/25/17 08/25/17 22:56 00:04 00:05 Temperature 98.8 F Pulse Rate 88 Respiratory 18 18 18 Rate Blood Pressure 134/53 (mmHg) O2 Sat by Pulse 96 96 Oximetry 08/25/17 08/25/17 08/25/17 01:53 03:25 05:32 Temperature 98.7 F Pulse Rate 84 Respiratory 18 16 18 Rate Blood Pressure 137/52 (mmHg) O2 Sat by Pulse 93 Oximetry 08/25/17 08/25/17 08:00 08:13 Temperature Pulse Rate Respiratory 18 18 Rate Blood Pressure (mmHg) O2 Sat by Pulse Oximetry PE: Gen: no acute distress. alert and appropriate. Lungs: clear bilaterally. CV: regular Abd: +bs, soft, non-tender, non-distended Ext: no edema. no calf pain. Right hip incision C/D/I Neuro: LE motor 5/5 with limited right hip testing and normal sensation. Laboratory Results - last 24 hr 08/25/17 08/25/17 08/25/17 07:33 07:33 07:33 WBC 11.6 H RBC 3.18 L Hgb 8.9 L Hct 27 L MCV 84 MCH 28 MCHC 33 RDW 14 Plt Count 177 MPV 8 Neut % (Auto) 77.9 Lymph % (Auto) 11.6 L Mcduffie % (Auto) 8.7 Eos % (Auto) 1.5 Baso % (Auto) 0.3 Absolute Neuts (auto) 9.0 H Absolute Lymphs (auto) 1.3 Absolute Monos (auto) 1.0 H Absolute Eos (auto) 0.2 Absolute Basos (auto) 0 Absolute Nucleated RBC 0.01 Nucleated RBC % 0.1 INR (Anticoag Therapy) 3.03 H Sodium 129 L Potassium 4.3 Chloride 96 L Carbon Dioxide 29 Anion Gap 4 BUN 22 Creatinine 0.80 Est GFR ( Amer) 88.8 Est GFR (Non-Af Amer) 69.0 BUN/Creatinine Ratio 27.5 H Glucose 110 H Calcium 8.2 L Total Bilirubin 0.40 AST 25 ALT 5 L Alkaline Phosphatase 60 Total Protein 5.3 L Albumin 2.8 L Globulin 2.5 Albumin/Globulin Ratio 1.1 IMPRESSION: 82yo woman s/p right THR secondary to OA PLAN: #Right THR- f/u with Dr. Zepeda. Hip precautions. #Hypertension - home lisinopril/hctz still on hold #Leukocytosis - check UA, CXR and blood cx x 2. Repeat cbc in am. #Nausea - scopalomine patch. zofran prn. #DVT ppx - give 2mg coumadin tonight. INR in am. #Continue PT/OT evaluations. IPOC meeting today. #Full Code. is hcp. #Est LOS - IPOC today.
--- NOTE | 2017-08-25 12:10 | RAD ---
INDICATION: Leukocytosis. COMPARISON: Comparison is made with prior studies from August 26, 2016 and August 14, 2017. TECHNIQUE: Dual-energy PA and lateral views of the chest were obtained. FINDINGS: The heart is within normal limits in size. There is a small to moderate sized lateral hernia. The lungs are underinflated. There are linear densities at the left lung base which are unchanged most consistent with scarring. The lungs are otherwise clear. There is flattening of diaphragms. No pleural effusion is seen. IMPRESSION: 1. FINDINGS SUGGESTIVE OF COPD, NO EVIDENCE FOR ACUTE FINDING. 2. HIATAL HERNIA, UNCHANGED.
--- NOTE | 2017-08-25 12:33 | PMRUTEAM ---
PMRU: Goals Current Status: Nursing: Current Status Skin Deviations [Buttocks] Other Skin Deviations [Right Hip] Incision Skin Deviation Description [ REDNESS TO TOP OF BOTTOCKS. LOTION APPLIED Buttocks] Skin Deviation Description [ drsg changed after showering with OT. no drainage Right Hip] noted. mild redness noted. new telfa and 4x4's x2 applied Physical Therapy: Current Status Bed Mobility Assistance min A Transfer Moblility Assistance contact guard Ambulation Assistance contact guard 60ft Ambulation Assistive Devices Rolling Walker Stairs Assistance not tested Stairs Recommended Devices Two Rails Number of Stairs 3 Occupational Therapy: Current Status Upper Body Dressing Supervision Lower Body Dressing Max Asst Bathing Min Assist Toileting Min Assist Toilet Transfer Supervision,Contact Guard Assist Shower Transfer Contact Guard Assist Eating Independent Rec Therapy: Current Status Summary of Assessment and Patient was open to meeting to discuss leisure Clinical Impression interests and involvement. Patient was able to identify multiple leisure interests. Patients came in to visit the patient after our meeting. Patient has a book in her room and states her could bring in more activities. Treatment Goals Patient will engage in leisure activities while on the unit. Treatment Plan Will provide and encourage involvement in RT services. Social Work: Current Status Discharge Plan return home with home care svs and family support Potential for Family Training pt's is involved and supportive Anticipated Discharge Home Destination Discharge With home care svs and family support Goals: Physical Therapy: Initial Goals Independent bed mobility. Transfers and ambulation modified independent with a rolling walker 150Ft. Independent up/down 5 stairs with 2 rails. Occupational Therapy: Initial Goals Goals to be Completed in (Days 5 ) Upper Body Bathing Routine Independent Lower Body Bathing Routine Modified Independent with Upper Body Dressing Routine Independent Lower Body Dressing Routine Modified Independent with Toilet Hygeine and Clothing Modified Independent with Management Routine Toilet Transfer Routine Modified Independent with Step-In Shower Transfer Modified Independent with Routine Functional Transfers for ADL Modified Independent with Grooming Routine Independent Feeding Routine Independent Nutrition: Goals Intervention Goals 1. post-op po intake will improve to consistently >50% of meals 2. regulated bowel pattern without constipation ( or diarrhea) Social Work: Goals Discharge Plan return home with home care svs and family support Potential for Family Training pt's is involved and supportive Anticipated Discharge Home Destination Discharge With home care svs and family support Care Plan: Care Plan ADL's - Improve/Maintain Start: 08/25/17 10:59 Freq: DAILY Status: Active Target: Protocol: Activity Type Activity Date Activity User E-Sign Co-Sign Detail Recorded Client Recorded Date Recorded By Document 08/25/17 11:01 [id number] 08/25/17 11:02 [id number] 08/25/17 11:01 PMRU Outcome: ADL's/ADL Transfers Orders/Interventions Occupational Therapy Evaluation & Treatment Communication Tool in Patient Room Patient to receive OT 5x/wk for 60-120 Therex min/day Self Care Management Group Therapy Neuromuscular ReEducation UE/LE ADL's with Assist Yes: Mod I ADL Transfers with Assist Yes: Mod I Toileting: Transfers,Clothing Management Yes: Mod I ,Hygeine w/Assist Progression Toward Outcome/Goals Progressing DVT Prophylaxis- Improve/Maintain Start: 08/24/17 13:12 Freq: DAILY Status: Active Target: Protocol: Activity Type Activity Date Activity User E-Sign Co-Sign Detail Recorded Client Recorded Date Recorded By Document 08/25/17 09:06 [id number] 08/25/17 09:07 [id number] 08/25/17 09:06 PMRU Outcome: DVT Prophylaxis Outcome/Goals Remains Free of DVT Complies with DVT Prophylaxis /Treatment Demonstrates Knowledge of DVT Prevention/ Treatment TEDS Stockings on Every AM, Off at HS Progression Toward Outcome/Goals Progressing Discharge Planning - Improve/Maintain Start: 08/24/17 13:12 Freq: DAILY Status: Active Target: Protocol: Activity Type Activity Date Activity User E-Sign Co-Sign Detail Recorded Client Recorded Date Recorded By Document 08/24/17 23:33 [id number] 08/24/17 23:33 [id number] 08/24/17 23:33 PMRU Outcome: Discharge Planning Update Patient Family No Outcome/Goals Demonstrates Understanding of Discharge Plan Education-Improve/Maintain Start: 08/24/17 13:12 Freq: DAILY Status: Active Target: Protocol: Activity Type Activity Date Activity User E-Sign Co-Sign Detail Recorded Client Recorded Date Recorded By Document 08/25/17 09:06 [id number] [id number] 08/25/17 09:07 [id number] 08/25/17 09:06 PMRU Outcome: Education Outcome/Goals Demonstrate/ Verbalize Understanding of Written Discharge Instructions Demonstrates Skills Encourage Questions Progression Toward Outcome/Goals Progressing /GI-Improve/Maintain Start: 08/24/17 13:12 Freq: DAILY Status: Active Target: Protocol: Activity Type Activity Date Activity User E-Sign Co-Sign Detail Recorded Client Recorded Date Recorded By Document 08/25/17 09:06 [id number] 08/25/17 09:07 [id number] 08/25/17 09:06 PMRU Outcome: Genitourinary/ Gastrointestinal Genitourinary- Outcome/Goals Remain Free of Hospital- Acquired UTI Gastrointestinal-Outcome/Goals Remain Free of Emesis Prevent Constipation Laxatives as Ordered Progression Toward Outcome/Goals - Progressing Progression Toward Outcome/Goals - GI Progressing Medication Administration Start: 08/24/17 13:12 Freq: DAILY Status: Active Target: Protocol: Activity Type Activity Date Activity User E-Sign Co-Sign Detail Recorded Client Recorded Date Recorded By Document 08/25/17 09:06 [id number] 08/25/17 09:07 [id number] 08/25/17 09:06 PMRU Outcome: Medication Administration Assess Patient Knowledge/Teach Med Yes Education for all Meds Outcome/Goals Patient Independent with Medication Administration at Home Demonstrates Understanding Progression Towards Outcome/Goals Progressing Is Patient Going Home on Lovenox? No Pain/Comfort- Improve/Maintain Start: 08/24/17 13:12 Freq: DAILY Status: Active Target: Protocol: Activity Type Activity Date Activity User E-Sign Co-Sign Detail Recorded Client Recorded Date Recorded By Document 08/25/17 09:06 [id number] 08/25/17 09:07 [id number] 08/25/17 09:06 PMRU Outcome: Pain/Comfort Outcome/Goals Demonstrates Knowledge and Use of Available Comfort Measures Achieves Acceptable Comfort/Pain Level as Determined by Patient/Condit Maintain Comfort Level Allowing Patient to Fully Participate in Rehab Progression Toward Outcome/Goals Progressing Safety- Improve/Maintain Start: 08/24/17 13:12 Freq: DAILY Status: Active Target: Protocol: Activity Type Activity Date Activity User E-Sign Co-Sign Detail Recorded Client Recorded Date Recorded By Document 08/25/17 09:06 [id number] 08/25/17 09:07 [id number] 08/25/17 09:06 PMRU Outcome: Safety Outcome/Goals Remain Free of Injury or Harm Prevent Falls/ Injury Progression Toward Outcome/Goals Progressing Skin- Improve/Maintain Start: 08/24/17 13:12 Freq: DAILY Status: Active Target: Protocol: Activity Type Activity Date Activity User E-Sign Co-Sign Detail Recorded Client Recorded Date Recorded By Document 08/25/17 09:06 [id number] 08/25/17 09:07 [id number] 08/25/17 09:06 PMRU Outcome: Skin Skin Risk Level Low Skin Orders Dressing Change Teach Patient Air Mattress Outcome/Goals Free from Decubitus Surgical Incisions Healing Progression Toward Outcome/Goals Progressing Medicine Note: Length of Stay: [4 days] Anticipated Discharge Destination: Home Tentative Discharge Date: [08/29/17] Discharged to: [home]
[2017-08-25 13:28] LABS: Urine Bacteria Absent (Absent); Urine Bilirubin Negative (Negative); Urine Glucose Negative (Negative); Urine Nitrite Negative (Negative)
[2017-08-25] MEDS: Warfarin TAB(*) 2 MG PO SCH (16:57)
[2017-08-25] MEDS: Mineral Oil, LAXITIVE* 30 ML UDC PO PRN (19:42)
[2017-08-26] MEDS: Omeprazole CAP* 20 MG PO SCH ×2 (08:14→21:02)
[2017-08-26] MEDS: Docusate CAP* 100 MG PO SCH ×2 (08:14→21:01)
[2017-08-26] MEDS: Fluticasone NASAL SPRAY 50MCG* 16 gm SPRAY BTL BOTH NARES SCH (08:15)
[2017-08-26] MEDS: Magnesium Hydroxide LIQ* 30 ML UDC PO PRN ×2 (08:15→17:48)
[2017-08-26] MEDS: Nystatin CREAM* 15 GM TUBE TOPICAL SCH ×2 (08:15→21:01)
[2017-08-26] MEDS: oxyCODONE/Acetamin 5/325 MG* TAB PO PRN ×2 (09:16→21:00)
[2017-08-26] MEDS ORDERED: Polyethylene Glycol 3350* 17 GM PACKET PO PRN (09:42)
--- NOTE | 2017-08-26 10:22 | PN ---
Progress Note - Progress Note Date of Service: 08/26/17 Note: Nursing and therapy notes reviewed. No chest pain, shortness of breath or abdominal pain. No nausea or vomiting. Only small BM since surgery. Acetaminophen (Tylenol Tab*) 650 mg PO Q6H PRN PRN Reason: FEVER > 101 Al Hydrox/Mg Hydrox/Simethicone (Maalox Plus*) 30 ml PO Q6H PRN PRN Reason: INDIGESTION Al Hydroxide/Mg Trisilicate (Gaviscon Chew Tab*) 2 tab.chew PO DAILY PRN PRN Reason: INDIGESTION Last Admin: 08/25/17 05:32 Dose: 2 tab.chew Bisacodyl (Dulcolax Supp*) 10 mg [place] DAILY PRN PRN Reason: CONSTIPATION Docusate Sodium (Colace Cap*) 100 mg PO BID [facility] Last Admin: 08/26/17 08:14 Dose: 100 mg Fluticasone Propionate (Flonase Nasal [place] 50mcg*) 2 spray BOTH NARES DAILY [facility] Last Admin: 08/26/17 08:15 Dose: 2 spray Magnesium Hydroxide (Milk Of Magnesia Liq*) 30 ml PO Q6H PRN PRN Reason: CONSTIPATION Last Admin: 08/26/17 08:15 Dose: 30 ml Mineral Oil (Mineral Oil*) 30 ml PO BEDTIME PRN PRN Reason: CONSTIPATION Last Admin: 08/25/17 19:42 Dose: 30 ml Nystatin (Nystatin Cream*) 1 applic TOPICAL BID [facility] Last Admin: 08/26/17 08:15 Dose: 1 applic Omeprazole (Prilosec Cap*) 20 mg PO BID [facility] Last Admin: 08/26/17 08:14 Dose: 20 mg Ondansetron HCl (Zofran Odt Tab*) 4 mg PO Q6H PRN PRN Reason: NAUSEA Last Admin: 08/25/17 01:56 Dose: 4 mg Oxycodone/Acetaminophen (Percocet 5/325 Tab*) 1 tab PO Q4H PRN PRN Reason: PAIN Last Admin: 08/25/17 19:42 Dose: 1 tab Oxycodone/Acetaminophen (Percocet 5/325 Tab*) 2 tab PO Q4H PRN PRN Reason: PAIN Last Admin: 08/26/17 09:16 Dose: 2 tab Polyethylene Glycol/Electrolytes (Miralax*) 17 gm PO DAILY PRN PRN Reason: CONSTIPATION Scopolamine (Transderm-Scop 1.5 Mg Patch*) 1 patch TRANSDERM Q72H [facility] Last Admin: 08/24/17 14:18 Dose: 1 patch Senna (Senokot Tab*) 2 tab PO BEDTIME PRN PRN Reason: CONSTIPATION Warfarin Sodium (Coumadin Tab(*)) 2 mg PO DAILY@1700 [facility]O PRN Reason: Protocol Last Admin: 08/25/17 16:57 Dose: 2 mg Vital Signs 08/25/17 08/25/17 08/25/17 10:33 15:11 17:48 Temperature 98.9 F Pulse Rate 81 Respiratory 18 16 Rate Blood Pressure 128/58 (mmHg) O2 Sat by Pulse 98 98 Oximetry 08/25/17 08/25/17 08/25/17 19:42 21:36 21:54 Temperature Pulse Rate Respiratory 18 18 16 Rate Blood Pressure (mmHg) O2 Sat by Pulse Oximetry 08/25/17 08/26/17 08/26/17 23:24 05:30 08:20 Temperature 98.2 F 98.4 F Pulse Rate 78 80 Respiratory 20 18 Rate Blood Pressure 132/61 139/66 (mmHg) O2 Sat by Pulse 95 96 96 Oximetry 08/26/17 09:16 Temperature Pulse Rate Respiratory 18 Rate Blood Pressure (mmHg) O2 Sat by Pulse Oximetry PE: Gen: no acute distress. alert and appropriate. Lungs: clear bilaterally. CV: regular Abd: +bs, soft, non-tender, non-distended Ext: no edema. no calf pain. Neuro: LE motor 5/5 with limited right hip testing and normal sensation. Laboratory Results - last 24 hr 08/25/17 12:30 Urine Color Yellow Urine Appearance Clear Urine pH 5.0 Ur Specific [place] 1.012 Urine Protein Negative Urine Ketones Negative Urine Blood Negative Urine Nitrate Negative Urine Bilirubin Negative Urine Urobilinogen Negative Ur Leukocyte Esterase 2+ H Urine WBC (Auto) 2+(11-20/hpf) H Urine RBC (Auto) Absent Ur Squamous Epith Cells Present H Urine Bacteria Absent Urine Glucose Negative INR pending this morning. Urine culture pending from 08/25/17 Blood cultures pending from 08/25/17 Chest x-ray 08/25/17 - stigmata of COPD. Hiatal hernia. No acute pulmonary process. 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 Zepeda. Hip precautions. #Hypertension - home lisinopril/hctz still on hold #Leukocytosis - UA done, but may be contaminated. Await Urine culture results and repeat cbc today. Pending blood cx x 2 from 08/25/17. #Nausea - scopalomine patch. zofran prn. #DVT ppx - pending INR today. On coumadin 2mg qpm right now. #Continue PT/OT #Full Code. is hcp. #Est LOS - anticipate discharge on 08/29/17.
[2017-08-26 15:08] LABS: Hematocrit 25 % (35-47); Hemoglobin 8.6 g/dl (12.0-16.0); Mean Corpuscular HGB Conc 34 g/dl (31-36); Mean Corpuscular Hemoglobin 28 pg (27-31); Mean Corpuscular Volume 83 fL (80-97); Mean Platelet Volume 7 um3 (7.4-10.4); Red Blood Count 3.02 10^6/ul (4.0-5.4); Red Cell Distribution Width 14 % (10.5-15)
[2017-08-26] MEDS: Warfarin TAB(*) 2 MG PO SCH (17:02)
[2017-08-26] MEDS: Mineral Oil, LAXITIVE* 30 ML UDC PO PRN (21:04)
[2017-08-27] MEDS: Fluticasone NASAL SPRAY 50MCG* 16 gm SPRAY BTL BOTH NARES SCH (09:01)
[2017-08-27] MEDS: Omeprazole CAP* 20 MG PO SCH ×2 (09:01→20:55)
[2017-08-27] MEDS: Docusate CAP* 100 MG PO SCH ×2 (09:01→20:55)
[2017-08-27] MEDS: Nystatin CREAM* 15 GM TUBE TOPICAL SCH ×2 (09:03→20:30)
--- NOTE | 2017-08-27 10:25 | PN ---
Progress Note - Progress Note Date of Service: 08/27/17 Note: No nausea. Not needing much pain meds. She thinks at home she may not use any. No chest pain, shortness of breath or abdominal pain. +BMs. Acetaminophen (Tylenol Tab*) 650 mg PO Q6H PRN PRN Reason: FEVER > 101 Al Hydrox/Mg Hydrox/Simethicone (Maalox Plus*) 30 ml PO Q6H PRN PRN Reason: INDIGESTION Al Hydroxide/Mg Trisilicate (Gaviscon Chew Tab*) 2 tab.chew PO DAILY PRN PRN Reason: INDIGESTION Last Admin: 08/25/17 05:32 Dose: 2 tab.chew Bisacodyl (Dulcolax Supp*) 10 mg [place] DAILY PRN PRN Reason: CONSTIPATION Docusate Sodium (Colace Cap*) 100 mg PO BID [facility] Last Admin: 08/27/17 09:01 Dose: 100 mg Fluticasone Propionate (Flonase Nasal [place] 50mcg*) 2 spray BOTH NARES DAILY [facility] Last Admin: 08/27/17 09:01 Dose: 2 spray Hydrochlorothiazide (Hydrodiuril Tab*) 25 mg PO DAILY [facility] Magnesium Hydroxide (Milk Of Magnesia Liq*) 30 ml PO Q6H PRN PRN Reason: CONSTIPATION Last Admin: 08/26/17 17:48 Dose: 30 ml Mineral Oil (Mineral Oil*) 30 ml PO BEDTIME PRN PRN Reason: CONSTIPATION Last Admin: 08/26/17 21:04 Dose: 30 ml Nystatin (Nystatin Cream*) 1 applic TOPICAL BID [facility] Last Admin: 08/27/17 09:03 Dose: 1 applic Omeprazole (Prilosec Cap*) 20 mg PO BID [facility] Last Admin: 08/27/17 09:01 Dose: 20 mg Ondansetron HCl (Zofran Odt Tab*) 4 mg PO Q6H PRN PRN Reason: NAUSEA Last Admin: 08/25/17 01:56 Dose: 4 mg Oxycodone/Acetaminophen (Percocet 5/325 Tab*) 1 tab PO Q4H PRN PRN Reason: PAIN Last Admin: 08/26/17 21:00 Dose: 1 tab Oxycodone/Acetaminophen (Percocet 5/325 Tab*) 2 tab PO Q4H PRN PRN Reason: PAIN Last Admin: 08/26/17 09:16 Dose: 2 tab Polyethylene Glycol/Electrolytes (Miralax*) 17 gm PO DAILY PRN PRN Reason: CONSTIPATION Senna (Senokot Tab*) 2 tab PO BEDTIME PRN PRN Reason: CONSTIPATION Warfarin Sodium (Coumadin Tab(*)) 2 mg PO DAILY@1700 [facility]RISTIANO PRN Reason: Protocol Last Admin: 08/26/17 17:02 Dose: 2 mg Vital Signs 08/26/17 08/26/17 08/26/17 10:49 15:32 16:28 Temperature 98.6 F Pulse Rate 84 Respiratory 18 16 Rate Blood Pressure 131/61 (mmHg) O2 Sat by Pulse 97 97 Oximetry 08/26/17 08/27/17 08/27/17 21:00 01:31 05:24 Temperature Pulse Rate Respiratory 18 16 Rate Blood Pressure (mmHg) O2 Sat by Pulse 97 Oximetry 08/27/17 08/27/17 05:47 09:08 Temperature 98.5 F Pulse Rate 76 Respiratory 17 Rate Blood Pressure 125/60 (mmHg) O2 Sat by Pulse 94 94 Oximetry PE: Gen: no acute distress. alert and appropriate. Lungs: clear bilaterally. CV: regular Abd: +bs, soft, non-tender, non-distended Ext: no edema. no calf pain. Neuro: LE motor 5/5 with limited right hip testing and normal sensation. Laboratory Results - last 24 hr 08/26/17 08/26/17 08/27/17 15:00 15:00 08:28 WBC 11.0 H RBC 3.02 L Hgb 8.6 L Hct 25 L MCV 83 MCH 28 MCHC 34 RDW 14 Plt Count 212 MPV 7 L Neut % (Auto) 74.3 Lymph % (Auto) 13.7 L [place] % (Auto) 8.5 Eos % (Auto) 2.6 Baso % (Auto) 0.9 Absolute Neuts (auto) 8.2 H Absolute Lymphs (auto) 1.5 Absolute Monos (auto) 0.9 H Absolute Eos (auto) 0.3 Absolute Basos (auto) 0.1 Absolute Nucleated RBC 0 Nucleated RBC % 0 INR (Anticoag Therapy) 2.80 H 2.39 H Urine culture from 08/25/17 negative. Blood cultures x2 from 08/25/17 negative to date. Chest x-ray 08/25/17 - stigmata of COPD. Hiatal hernia. No acute pulmonary process. 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 Zepeda scheduled already for 09/04. Hip precautions. #Hypertension - home lisinopril/hctz has on hold and BP ok, but will restart hctz 25mg qday today. Consider need to restart lisinopril 20mg qday. At home these were a combination pill. So, if she does not go home with both she will need a new rx for just hctz. #Leukocytosis - improved on labs yesterday. No source from UA, CXR and blood cx so far. Recheck cbc in am. f/u blood cx. #Nausea - This is better and may have been from anesthesia. Trial of d/c scopalomine patch. zofran prn. #Hyponatremia - Not symptomatic. recheck p3 tomorrow #DVT ppx - INR therapeutic. Continue coumadin 2mg qpm. INR in am. #Continue PT/OT #Full Code. is hcp. #Est LOS - anticipate discharge on Monday08/29/17.
[2017-08-27] MEDS: Hydrochlorothiazide TAB* 25 MG PO SCH (12:34)
[2017-08-27] MEDS: oxyCODONE/Acetamin 5/325 MG* TAB PO PRN ×2 (16:05→20:55)
[2017-08-27] MEDS: Warfarin TAB(*) 2 MG PO SCH (16:05)
[2017-08-27] MEDS: Mineral Oil, LAXITIVE* 30 ML UDC PO PRN (20:55)
[2017-08-28] MEDS: oxyCODONE/Acetamin 5/325 MG* TAB PO PRN ×4 (05:56→22:20)
[2017-08-28 07:26] LABS: Hematocrit 25 % (35-47); Hemoglobin 8.4 g/dl (12.0-16.0); Mean Corpuscular HGB Conc 34 g/dl (31-36); Mean Corpuscular Hemoglobin 29 pg (27-31); Mean Corpuscular Volume 84 fL (80-97); Mean Platelet Volume 7 um3 (7.4-10.4); Red Blood Count 2.94 10^6/ul (4.0-5.4); Red Cell Distribution Width 14 % (10.5-15); White Blood Count 8.5 10^3/ul (3.5-10.8)
[2017-08-28 07:37] LABS: Calcium 8.2 mg/dL (8.6-10.3); EGFR African American 88.8 (>60); Potassium 4.1 mmol/L (3.5-5.0)
[2017-08-28] MEDS: Docusate CAP* 100 MG PO SCH ×2 (08:14→20:13)
[2017-08-28] MEDS: Gaviscon CHEW TAB* 1 TAB PO PRN (08:14)
[2017-08-28] MEDS: Fluticasone NASAL SPRAY 50MCG* 16 gm SPRAY BTL BOTH NARES SCH (08:14)
[2017-08-28] MEDS: Omeprazole CAP* 20 MG PO SCH ×2 (08:14→20:13)
[2017-08-28] MEDS: Hydrochlorothiazide TAB* 25 MG PO SCH (08:14)
[2017-08-28] MEDS: Nystatin CREAM* 15 GM TUBE TOPICAL SCH ×2 (08:15→20:13)
--- NOTE | 2017-08-28 16:53 | PN ---
Progress Note - Progress Note Date of Service: 08/28/17 Note: Patient was visited. Therapy notes read and reviewed. She is doing well enough to go home tomorrow. Her INR is stable and therapeutic. Feels good about discharge. She already has Coumadin and Oxycodone at home. Current Medications Acetaminophen (Tylenol Tab*) 650 mg PO Q6H PRN PRN Reason: FEVER > 101 Al Hydrox/Mg Hydrox/Simethicone (Maalox Plus*) 30 ml PO Q6H PRN PRN Reason: INDIGESTION Al Hydroxide/Mg Trisilicate (Gaviscon Chew Tab*) 2 tab.chew PO DAILY PRN PRN Reason: INDIGESTION Last Admin: 08/25/17 05:32 Dose: 2 tab.chew Bisacodyl (Dulcolax Supp*) 10 mg [place] DAILY PRN PRN Reason: CONSTIPATION Docusate Sodium (Colace Cap*) 100 mg PO BID [facility] Last Admin: 08/28/17 08:14 Dose: 100 mg Fluticasone Propionate (Flonase Nasal [place] 50mcg*) 2 spray BOTH NARES DAILY [facility] Last Admin: 08/28/17 08:14 Dose: 2 spray Hydrochlorothiazide (Hydrodiuril Tab*) 25 mg PO DAILY [facility] Last Admin: 08/28/17 08:14 Dose: 25 mg Lisinopril (Prinivil Tab*) 10 mg PO DAILY [facility] Magnesium Hydroxide (Milk Of Magnesia Liq*) 30 ml PO Q6H PRN PRN Reason: CONSTIPATION Last Admin: 08/26/17 17:48 Dose: 30 ml Mineral Oil (Mineral Oil*) 30 ml PO BEDTIME PRN PRN Reason: CONSTIPATION Last Admin: 08/27/17 20:55 Dose: 30 ml Nystatin (Nystatin Cream*) 1 applic TOPICAL BID [facility] Last Admin: 08/28/17 08:15 Dose: 1 applic Omeprazole (Prilosec Cap*) 20 mg PO BID [facility] Last Admin: 08/28/17 08:14 Dose: 20 mg Ondansetron HCl (Zofran Odt Tab*) 4 mg PO Q6H PRN PRN Reason: NAUSEA Last Admin: 08/25/17 01:56 Dose: 4 mg Oxycodone/Acetaminophen (Percocet 5/325 Tab*) 1 tab PO Q4H PRN PRN Reason: PAIN Last Admin: 08/28/17 05:56 Dose: 1 tab Oxycodone/Acetaminophen (Percocet 5/325 Tab*) 2 tab PO Q4H PRN PRN Reason: PAIN Last Admin: 08/28/17 13:04 Dose: 2 tab Polyethylene Glycol/Electrolytes (Miralax*) 17 gm PO DAILY PRN PRN Reason: CONSTIPATION Senna (Senokot Tab*) 2 tab PO BEDTIME PRN PRN Reason: CONSTIPATION Warfarin Sodium (Coumadin Tab(*)) 2 mg PO DAILY@1700 [facility]O PRN Reason: Protocol Last Admin: 08/27/17 16:05 Dose: 2 mg Laboratory Results - last 24 hr 08/28/17 08/28/17 08/28/17 07:00 07:00 07:00 WBC 8.5 RBC 2.94 L Hgb 8.4 L Hct 25 L MCV 84 MCH 29 MCHC 34 RDW 14 Plt Count 246 MPV 7 L Neut % (Auto) 69.1 Lymph % (Auto) 17.7 L [place] % (Auto) 9.3 H Eos % (Auto) 3.3 Baso % (Auto) 0.6 Absolute Neuts (auto) 5.8 Absolute Lymphs (auto) 1.5 Absolute Monos (auto) 0.8 Absolute Eos (auto) 0.3 Absolute Basos (auto) 0 Absolute Nucleated RBC 0.01 Nucleated RBC % 0.1 INR (Anticoag Therapy) 2.34 H Sodium 133 Potassium 4.1 Chloride 99 L Carbon Dioxide 30 Anion Gap 4 BUN 20 Creatinine 0.80 Est GFR ( Amer) 88.8 Est GFR (Non-Af Amer) 69.0 BUN/Creatinine Ratio 25.0 H Glucose 103 H Calcium 8.2 L Vital Signs Temp Pulse Resp BP Pulse Ox 97.4 F 75 18 145/65 97 08/28/17 15:41 08/28/17 15:41 08/28/17 15:41 08/28/17 15:41 08/28/17 15:41 EXAM: LUNGS: Clear HEART: Reg rhythm ABDOMEN: Soft, +BS EXTREMITIES: Wound clean ASSESSMENT/PLAN: 1. Right SUGEY: PT/OT. Doing well 2. Hypertension: Her BP is able to re-start Lisinopril. Will resume Zestoretic on Monday at home. 3. Hyponatremia: resolved 4. DVT Prophylaxis: Coumadin 5. Advanced Directives: Full code
[2017-08-28] MEDS: Warfarin TAB(*) 2 MG PO SCH (17:07)
[2017-08-28] MEDS: Mineral Oil, LAXITIVE* 30 ML UDC PO PRN (20:13)
[2017-08-29 05:56] VITALS: BP 153/75
[2017-08-29] MEDS: Fluticasone NASAL SPRAY 50MCG* 16 gm SPRAY BTL BOTH NARES SCH (08:10)
[2017-08-29] MEDS: Docusate CAP* 100 MG PO SCH (08:10)
[2017-08-29] MEDS: Omeprazole CAP* 20 MG PO SCH (08:10)
[2017-08-29] MEDS: Hydrochlorothiazide TAB* 25 MG PO SCH (08:11)
[2017-08-29] MEDS: Nystatin CREAM* 15 GM TUBE TOPICAL SCH (08:11)
[2017-08-29] MEDS ORDERED: Lisinopril TAB* 10 MG PO SCH (09:00)
[2017-08-29] MEDS: oxyCODONE/Acetamin 5/325 MG* TAB PO PRN (11:49)
--- NOTE | 2017-08-30 03:30 | DS ---
CC: Tasha Gabriel NP, [facility] * DISCHARGE SUMMARY: DATE OF ADMISSION: 08/24/17 DATE OF DISCHARGE: 08/29/17 DISCHARGE DIAGNOSES: 1. Right total hip replacement. 2. Hypertension. 3. Crohn's disease. 4. Gastroesophageal reflux disease. 5. History of breast cancer, status post lumpectomy. HISTORY OF ILLNESS AND HOSPITAL COURSE: For complete history of events leading up to her rehab stay, please see the history and physical dictated by Dr. Arelis Madsen on 08/24/17. While on the rehab unit, the patient remained fairly stable from a medical point of view. She was maintained on Coumadin for DVT prophylaxis. Her wound healed well without causes for concern. Her blood pressure medications were resumed as her blood pressure stabilized after surgery. The patient was seen by Physical and Occupational Therapy and made good gains with both disciplines. With physical therapy at the time of admission , the patient required contact guard to do transfer. She could ambulate 60 feet with contact guard. With occupational therapy, she was supervision for upper body dressing, max assist for lower body dressing, mod assist for bathing , max assist for toileting and toilet transfers. By the time of discharge, the patient transfers independently ambulating 300 feet, going up and down stairs, independent with her activities of daily living. The patient was discharged home, 08/29/17. DISCHARGE DIET: Regular. DISCHARGE MEDICATIONS: Included: 1. Omeprazole 20 mg twice daily. 2. Percocet 1 to 2 tablets every 4 hours as needed. 3. Coumadin 2 mg daily. 4. Lisinopril 20/25 one tablet every morning. 5. Flonase 2 sprays to both nares every day. 6. Allergy shots as needed. SERVICES AFTER DISCHARGE: Through [facility]. She will have home nursing, home physical therapy, and a home health aide. FOLLOWUP: With Dr. Radha Zepeda, her orthopedic surgeon, in 1 week. She will also follow up with her primary care provider, Tasha Gabriel NP. [id number]/[facility] #: [id number] MTDD
== END 2017-08-29 12:40 | disposition home health service (06) | DRG 560 ==
LOC: PMRU 11:59
PROVIDERS: ADMIT Physical Medicine & Rehabilitation; ATTEND Physical Medicine & Rehabilitation
PROC: F07Z5ZZ Bed Mobility Treatment (ICD-10-PCS; principal; 2017-08-24)
PROC: F07Z9ZZ Gait Training/Functional Ambulation Treatment (ICD-10-PCS; 2017-08-24)
PROC: F07Z8ZZ Transfer Training Treatment (ICD-10-PCS; 2017-08-24)
PROC: F08Z0ZZ Bathing/Showering Techniques Treatment (ICD-10-PCS; 2017-08-24)
PROC: F08Z1ZZ Dressing Techniques Treatment (ICD-10-PCS; 2017-08-24)
PROC: F08Z3ZZ Feeding/Eating Treatment (ICD-10-PCS; 2017-08-24)
DX: Z47.1 Aftercare following joint replacement surgery (principal); K50.90 Crohn's disease, unspecified, without complications; E87.1 Hypo-osmolality and hyponatremia; I10 Essential (primary) hypertension; Z96.641 Presence of right artificial hip joint; K21.9 Gastro-esophageal reflux disease without esophagitis; Z85.3 Personal history of malignant neoplasm of breast; Z79.01 Long term (current) use of anticoagulants; Z79.1 Long term (current) use of non-steroidal anti-inflammatories (NSAID); Z79.899 Other long term (current) drug therapy; Z88.1 Allergy status to other antibiotic agents; Z88.5 Allergy status to narcotic agent; Z88.8 Allergy status to other drugs, medicaments and biological substances; Z82.49 Family history of ischemic heart disease and other diseases of the circulatory system; D72.829 Elevated white blood cell count, unspecified
CPT/HCPCS: 36415; 71020; 80048; 80053; 81003; 81015; 85025; 85610; 87040; 87086; A9270-GY

== ENCOUNTER 2018-07-04 08:07 | Day surgery (SDC) | payer MEDICARE ==
[~2018-07-04 08:07] MED LIST: Acetaminophen TAB* 325 MG PO PRN; Buffered Lidocaine 0.9% SYRIN* 5 ML/SYR SYRINGE INTRADERM ONE
[2018-07-04] MEDS ORDERED: Midazolam* 1 MG/ML 5 ML VIAL (5 MG) ONE (09:54)
[2018-07-04 10:48] VITALS: BP 125/66
[2018-07-04] MEDS ORDERED: Phenylephrine 2.5% OPTH.SOL* 2 ML BTL ONE (11:57)
[2018-07-04] MEDS ORDERED: Lidocaine 2% EPI 1:200000 MPF*10-20 ML VIAL ONE (11:57)
[2018-07-04] MEDS ORDERED: Lidocaine 1%* 5 ML VIAL ONE (11:57)
[2018-07-04] MEDS ORDERED: Cyclopentolate 1% OPTH.SOL* 2 ML BTL ONE (11:57)
[2018-07-04] MEDS ORDERED: acetaZOLAMIDE TAB* 250 MG ONE (11:57)
[2018-07-04] MEDS ORDERED: Proparacaine 0.5% OPHTH.SOL* 15 ML BTL ONE (11:57)
[2018-07-04] MEDS ORDERED: Ketorolac 0.5% OPHTH (NF) 0.5 % 5 ML BTL ONE (11:57)
[2018-07-04] MEDS ORDERED: Povidone Iodine 5% OPTH* 30 ML BTL ONE (11:57)
[2018-07-04] MEDS ORDERED: Neomycin/Polymy/Dex OPTH.SUSP* MAXITROL 0.1% 5 ML ONE (11:57)
--- NOTE | 2018-07-05 04:07 | OP ---
DATE OF OPERATION: 07/04/18 [facility] DATE OF : 39 SURGEON: Ian Conroy M.D. PREOPERATIVE DIAGNOSIS: Cataract, right eye. POSTOPERATIVE DIAGNOSIS: Cataract, right eye. OPERATIVE PROCEDURE: Extracapsular cataract extraction with intraocular lens implant, right eye. DESCRIPTION OF PROCEDURE: The patient was brought to the operating room after being given 1/2% Alcaine with epinephrine drops in the preoperative area. The eye was prepped and draped in the usual sterile fashion. Sterile drape and eyelid speculum were placed. Again, topical 1/2% Alcaine with epinephrine was given. A paracentesis incision was made at the 9 o'clock position with the No.75 blade. Clear cornea incision 2.2 x 2.2-mm was created at the 12 o'clock position starting at the anterior limbus using the 2.2-mm keratome. The anterior chamber was irrigated with 0.4 mL of 1% non-preservative intracameral lidocaine and filled with DisCoVisc. A capsulorrhexis was completed using the cystotome and the Utrata forceps. Hydrodissection was performed with balanced salt solution. The lens nucleus was removed with the Phacoemulsification handpiece without incident. Cortex was removed with the irrigation-aspiration handpiece. The capsular bag was re-inflated using DisCoVisc and an [id number] implant was inserted with the shooter, oriented to the 22-degree meridian. Horizontal reference henriquez made with the patient seated in the preoperative area. The irrigation-aspiration handpiece was used to remove all residual DisCoVisc. The eye was refilled with balanced salt solution and the wound checked and found to be watertight. Topical Maxitrol drops were given. [id number]/[facility] #: [id number] MTDD
== END 2018-07-04 10:49 | disposition home or self-care (01) ==
LOC: OREAST 08:07
PROVIDERS: ATTEND Specialist
DX: H25.811 Combined forms of age-related cataract, right eye (principal); Z87.891 Personal history of nicotine dependence; Z85.3 Personal history of malignant neoplasm of breast; I10 Essential (primary) hypertension; K50.90 Crohn's disease, unspecified, without complications
CPT/HCPCS: A9270-GY; J2250; V2787

== ENCOUNTER 2019-07-03 08:08 | Day surgery (SDC) | payer MEDICARE ==
[~2019-07-03 08:08] MED LIST changes: -Acetaminophen TAB* 325 MG PO PRN; -Buffered Lidocaine 0.9% SYRIN* 5 ML/SYR SYRINGE INTRADERM ONE; +Buffered Lidocaine 1% SYRIN* 1 ML/SYRINGE INTRADERM ONE
[2019-07-03] MEDS ORDERED: Cyclopentolate 1% OPTH.SOL* 2 ML BTL ONE (10:20)
[2019-07-03] MEDS ORDERED: Neomycin/Polymy/Dex OPTH.SUSP* MAXITROL 0.1% 5 ML ONE (10:20)
[2019-07-03] MEDS ORDERED: Lidocaine 1% MPF ** 5 ML VIAL ONE (10:20)
[2019-07-03] MEDS ORDERED: Lidocaine 2% w/ EPI 1:200,000* 20 ML SDV VIAL ONE (10:20)
[2019-07-03] MEDS ORDERED: Phenylephrine OPHTH SOL 2.5%* 2 ML ONE (10:20)
[2019-07-03] MEDS ORDERED: acetaZOLAMIDE TAB* 250 MG ONE (10:20)
[2019-07-03] MEDS ORDERED: Proparacaine 0.5% OPHTH.SOL* 15 ML BTL ONE (10:21)
[2019-07-03] MEDS ORDERED: Povidone Iodine 5% OPTH* 30 ML BTL ONE (10:21)
[2019-07-03] MEDS ORDERED: Ketorolac 0.5% OPHTH (NF) 0.5 % 5 ML BTL ONE (10:21)
[2019-07-03] MEDS ORDERED: Lidocaine 2% PF * 5 ML VIAL ONE (11:08)
[2019-07-03] MEDS ORDERED: Propofol* 10 MG/ML 20 ML BTL ONE (11:08)
[2019-07-03] MEDS ORDERED: Midazolam* 1 MG/ML 2 ML VIAL (2 MG) ONE (11:33)
[2019-07-03 13:12] VITALS: BP 135/61
--- NOTE | 2019-07-03 22:13 | OP ---
DATE OF OPERATION: 07/03/19 [facility] DATE OF : 39 SURGEON: Ian Conroy M.D. PREOPERATIVE DIAGNOSIS: Cataract, left eye POSTOPERATIVE DIAGNOSIS: Cataract, left eye OPERATIVE PROCEDURE: Extracapsular cataract extraction with intraocular lens implant left eye. DESCRIPTION OF PROCEDURE: The patient was brought to the operating room after being given 1/2% Alcaine with epinephrine drops in the preoperative area. The eye was prepped and draped in the usual sterile fashion. Sterile drape and eyelid speculum were placed. Again, topical 1/2% Alcaine with epinephrine was given. A paracentesis incision was made at the 3 o'clock position with the No.75 blade. Clear cornea incision 2.2 x 2.2-mm was created at the 6 o'clock position starting at the anterior limbus using the 2.2-mm keratome. The anterior chamber was irrigated with 0.4 mL of 1% non-preservative intracameral lidocaine and filled with DisCoVisc. A capsulorrhexis was completed using the cystotome and the Utrata forceps. Hydrodissection was performed with balanced salt solution. The lens nucleus was removed with the Phacoemulsification handpiece without incident. Cortex was removed with the irrigation-aspiration handpiece. The capsular bag was re-inflated using DisCoVisc and an [id number] implant was inserted with the shooter. The irrigation-aspiration handpiece was used to remove all residual DisCoVisc. The eye was refilled with balanced salt solution and the wound checked and found to be watertight. Topical Maxitrol drops were given. [id number]/[facility] #: [id number] [facility]
== END 2019-07-03 12:15 | disposition home or self-care (01) ==
LOC: OREAST 08:08
PROVIDERS: ATTEND Specialist
DX: H25.812 Combined forms of age-related cataract, left eye (principal); H04.123 Dry eye syndrome of bilateral lacrimal glands; L40.8 Other psoriasis; Z87.891 Personal history of nicotine dependence; I10 Essential (primary) hypertension; M19.90 Unspecified osteoarthritis, unspecified site; Z85.3 Personal history of malignant neoplasm of breast; J30.89 Other allergic rhinitis
CPT/HCPCS: A9270-GY; J2250; J2704; V2632

== ENCOUNTER 2019-08-26 05:37 | Day surgery (SDC) | payer MEDICARE ==
[2019-08-26] MEDS ORDERED: Famotidine IV* 10 MG/ML 2 ML (20 mg) IV ONE (06:00)
[2019-08-26] MEDS ORDERED: Lactated Ringers 1000 ML Bag* 1,000 ML IV SCH ×2 (06:00)
[2019-08-26] MEDS ORDERED: Buffered Lidocaine 1% SYRIN* 1 ML/SYRINGE INTRADERM ONE (07:03)
[2019-08-26] MEDS ORDERED: ceFAZolin 2 GM in NS PREMIX(*) 2 GM/100 ML BAG IVPB ONE (07:03)
[2019-08-26] MEDS ORDERED: Bupivacaine 0.25% SDV* 30 ML ONE (07:15)
[2019-08-26] MEDS ORDERED: Midazolam* 1 MG/ML 2 ML VIAL (2 MG) ONE (07:53)
[2019-08-26] MEDS ORDERED: fentaNYL* 50 MCG/ML 2 ML VIAL (100 MCG VIAL) ONE ×2 (07:53→08:27)
[2019-08-26] MEDS ORDERED: Lidocaine 2% PF * 5 ML VIAL ONE (08:15)
[2019-08-26] MEDS ORDERED: KETAMINE HCL* 50 MG/ML 10 ML VIAL ONE (08:27)
[2019-08-26] MEDS ORDERED: EPHEDrine (Pressors)* 50 MG/ML VIAL ONE (08:36)
[2019-08-26] MEDS ORDERED: fentaNYL* 50 MCG/ML 2 ML VIAL (100 MCG VIAL) IV PRN (08:40)
[2019-08-26] MEDS ORDERED: Naloxone* 0.4 MG/ML 1 ML VIAL IV PRN (08:40)
[2019-08-26] MEDS ORDERED: Levalbuterol 0.63MG/3ML NEB* UNIT OF USE INH PRN (08:40)
[2019-08-26] MEDS ORDERED: Ondansetron INJ* 2 MG/ML VIAL IV PRN (08:40)
[2019-08-26] MEDS ORDERED: DiMENhydriNATE IV* 50 MG/ML VIAL IV PUSH PRN (08:40)
[2019-08-26] MEDS ORDERED: Acetaminophen IV 1GM/100ML * 100 ML ONE (08:58)
[2019-08-26] MEDS ORDERED: Ondansetron INJ* 2 MG/ML VIAL ONE (08:58)
[2019-08-26] MEDS ORDERED: Propofol* 10 MG/ML 20 ML BTL ONE (08:58)
[2019-08-26] MEDS ORDERED: Ketorolac INJ* 30 MG/ML 1 ML VIAL ONE (08:58)
[2019-08-26] MEDS ORDERED: Dexamethasone IV* 4 MG/ML 1 ML (4 MG) ONE (08:58)
[2019-08-26 12:21] VITALS: BP 138/66
--- NOTE | 2019-08-26 13:09 | OP ---
DATE OF OPERATION: 08/26/19 - [facility] DATE OF : 39 SURGEON: Jai Cee MD RING STAMPER: JIM Hendrix. An catering administrative assistant was needed for the procedure to aid in positioning of the arm and retraction. ANESTHESIOLOGIST: Dr. Field. ANESTHESIA: General. PRE-OP DIAGNOSES: 1. Left thumb carpometacarpal degenerative joint disease. 2. 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 POST-OP DIAGNOSES: 1. Left thumb carpometacarpal degenerative joint disease. 2. 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 OPERATIVE PROCEDURE: 1. Left thumb carpometacarpal arthroplasty with trapeziectomy. 2. Distally based split flexor carpi radialis tendon transfer for thumb suspension and tendon interposition. 2. Left thumb metacarpophalangeal joint ulnar collateral ligament repair with local tissue. INDICATIONS: Ms. Montenegro is 84 years old. She has the aforementioned instability and arthritis in the thumb. It is painful. We talked about treatment options, risks, and benefits. She wanted to proceed. ESTIMATED BLOOD LOSS: 2 mL. COMPLICATIONS: None. FINDINGS: See above and below. DESCRIPTION OF PROCEDURE: Ms. Montenegro was seen in the preoperative holding area. The correct site, side, and procedure were identified. We came back to the operating room. The arm was prepped and draped in the usual fashion and a time-out was performed. The arm was exsanguinated with the Esmarch and the tourniquet was inflated to 250 mmHg. I went ahead and made a 1 cm incision over the dorsal ulnar thumb. Dissection was carried down through the subcutaneous tissue. The fascia was incised. The radial artery was mobilized and retracted out of the way. The subperiosteal and capsular flaps were reflected. The trapeziectomy was performed. It mostly came out in 1 piece. The remainder of pieces were removed with a rongeur in piecemeal fashion. I used sequentially larger drill bits to make a bone tunnel from the dorsoradial thumb metacarpal base exiting out the volar ulnar articular surface near the FCR insertion on the second metacarpal base. The wound was irrigated out. The scaphotrapezoid joint was inspected and looked good. I then made a 1 cm incision just proximal to the wrist flexion crease. The FCR tendon sheath was open. The sheath was released along the course of the tendon. Two more 1 cm incisions were made proximal to that each at intervals. The entirety of the tendon sheath was released. In the distal wound, I placed a right angle retractor and brought the tendon up out of the wound intact. The tendon was split and a 26-gauge wire was placed in the tendon split. A Erna clamp was then used to pull the 26-gauge wire under the skin up and out of proximal wound releasing half the tendon at the musculo-tendinous junction. The free tendon tail was pulled down into the distal wound. The muscular remnants were removed. The tendon tail was secured with 3-0 Ethibond suture. The 26-gauge wires were used to shuttle the tendon tail down into the thumb base wound where the tendon split was completed all the way to base of the second metacarpal. The tendon tail was then passed through the bone tunnel back around the intact limb and the maximum tension was set as the tendon transfer was secured with 3 [id number] 3-0 Ethibond sutures, the first sewing all 3 limbs of the tendon transfer together and the last 2 sewing intact limb to intact limb. The remainder of the tendon was rolled up as a ball and placed as an interposition between the base of the metacarpal and the distal pole of the scaphoid. The wound was irrigated out and the capsule was closed with 4-0 Vicryl suture. Skin was closed with 4-0 nylon suture. With the tendon transfer and the arthroplasty performed, I turned my attention to the ulnar collateral ligament. A lazy-S incision was made over the ulnar aspect of the MCP joint. Dissection was carried down. Full-thickness flaps were raised off the adductor aponeurosis. The tendon was incised longitudinally and retracted palmarly and dorsally. The attenuated ulnar collateral ligament was visualized. The soft tissue edges were mobilized off the base of the proximal phalanx. Two DePuy mini Mitek suture anchors were placed into the base of the proximal phalanx. The 2-0 Ethibond suture was then used to whipstitch out the ligament advancing it down and really tightening up the ulnar side of the joint so that there was complete stability. After the sutures were tied off, I again examined everything. There was excellent stability with no radial deviation at the joint anymore. The repaired ligament were secured down with 3-0 Ethibond suture and 3-0 PDS. The adductor aponeurosis was repaired with 3-0 PDS suture. The skin was closed with 4-0 nylon suture. 0.25% Marcaine had been infiltrated about the operative area at the beginning of the surgery. A little bit more was added to the operative sites. The wounds were dressed with Xeroform, 4x4s, sterile Webril, and then thumb spica splint protecting the ulnar collateral ligament all the way up past the MCP joint was applied. The tourniquet was deflated and she was taken to the recovery room in stable condition. [id number]/[facility] #: [id number]
== END 2019-08-26 12:01 | disposition home or self-care (01) ==
LOC: OR 05:37
PROVIDERS: ATTEND Orthopaedic Surgery Hand Surgery
DX: M18.12 Unilateral primary osteoarthritis of first carpometacarpal joint, left hand (principal); M24.242 Disorder of ligament, left hand; I10 Essential (primary) hypertension; M19.90 Unspecified osteoarthritis, unspecified site; K21.9 Gastro-esophageal reflux disease without esophagitis; Z85.3 Personal history of malignant neoplasm of breast; Z87.891 Personal history of nicotine dependence
CPT/HCPCS: 88304; 88311; C1713; J0690; J1100; J1885; J2250; J2405; J2704; J3010; J3490